=== PATIENT | female | born 1985 | race Caucasian/White ===

== ENCOUNTER 2019-03-05 02:20 | Inpatient (IN) | payer OTHER ==
[2019-03-05] MEDS ORDERED: Ringers Lactate 1,000 ML IV PRN (06:45)
[2019-03-05] MEDS ORDERED: BUTORPHANOL 1 MG/ML INJ IV PRN (06:45)
[2019-03-05] MEDS ORDERED: PROMETHAZINE 25 MG/ML VIAL IV PRN (06:45)
[2019-03-05 06:57] VITALS: BMI 35.2
[2019-03-05] MEDS ORDERED: Ringers Lactate 1,000 ML IV SCH (07:00)
[2019-03-05] MEDS ORDERED: OXYTOCIN/LR 20 UNITS/1,000 ML BAG IV SCH (07:00)
--- NOTE | 2019-03-05 07:09 | P.PN ---
Date of Service: 03/05/19 Cx 2+cm, 60%, vtx 0 station. AROM by placement of FSE. Clear fluid noted.
[2019-03-05 07:10] LABS: RPR Titer ND
[2019-03-05 07:30] LABS: Absolute Monocytes 0.9 K/uL (0.1-1.3); Absolute Neutrophil 5.9 K/uL (1.8-8.0); Basophils % 0.3 % (0-1.3); Hematocrit 38.4 % (36.0-45.0); RBC Red Blood Cell Count 4.14 M/uL (3.86-4.86)
[2019-03-05 07:49] LABS: Urine Appearance CLEAR; Urine Bilirubin NEGATIVE (NEG); Urine Blood NEGATIVE (NEG); Urine Color YELLOW; Urine Glucose NEGATIVE (NEG); Urine Protein NEGATIVE (NEG); Urine Urobilinogen 0.2 mg/dL (0.2-1.0)
[2019-03-05 07:54] LABS: Urine Microscopic Reflex ORDER UMIC
[2019-03-05] MEDS ORDERED: FENTANYL CITR 100 MCG/2 ML IV ONE (07:58)
[2019-03-05 07:59] LABS: Urine Bacteria >50 /HPF (<20); Urine Culture Reflex Order NOT NEEDED; Urine RBC <5 /HPF (NONE SEEN)
[2019-03-05] MEDS ORDERED: ROPIVACAINE HCL 100 ML IV ONE (07:59)
[2019-03-05] MEDS ORDERED: ROPIVACAINE HCL 2 MG/ML 100ML IV ONE (08:00)
[2019-03-05] MEDS ORDERED: ROPIVACAINE HCL 0 ML ONE (08:24)
[2019-03-05] MEDS ORDERED: LIDOCAINE 2% MPF 5 ML VIAL ONE ×2 (09:11→12:51)
[2019-03-05] MEDS ORDERED: CARBOPROST TROME 250 MCG/ML IM ONE (11:52)
[2019-03-05] MEDS ORDERED: METHYLERGONOVINE 0.2MG/ML AMP IM ONE (11:52)
[2019-03-05] MEDS ORDERED: LIDOCAINE 1% MPF 30 ML VIAL ONE (12:07)
[2019-03-05] MEDS ORDERED: PROPOFOL 200 MG/20 ML VIAL IV ONE (12:45)
[2019-03-05] MEDS ORDERED: NA CIT/CITRIC AC 30 ML ORAL UDC ONE (12:52)
[2019-03-05] MEDS ORDERED: METHYLERGONOVINE 0.2 MG TAB PO PRN (13:31)
[2019-03-05] MEDS ORDERED: Oxycodone HCl/Acetaminophen 1 TAB TAB PO PRN (13:31)
[2019-03-05] MEDS ORDERED: CARBOPROST TROME 250 MCG/ML IM PRN (13:31)
[2019-03-05] MEDS ORDERED: METHYLERGONOVINE 0.2MG/ML AMP IM PRN (13:31)
[2019-03-05] MEDS ORDERED: ONDANSETRON 4 MG (ODT) TAB PO PRN (13:31)
[2019-03-05] MEDS ORDERED: OXYTOCIN/LR 20 UNIT/1,000 ML BAG IV SCH (14:00)
[2019-03-05] MEDS: IBUPROFEN 200 MG TAB PO PRN (16:00)
--- NOTE | 2019-03-05 16:14 | PREOPHP ---
Date of Admission: 03/05/2019 History Of Present Illness: Ms. Huff is a 33-year-old female, 1, para 0, n ow at 40 weeks gestation. She is admitted for elective induction of labor secondary to term pregnanc y with favorable cervix. She has been followed by me during this with complications of pat ernal history of family history of Duchenne's muscular dystrophy, prior possible LEEP procedure, and mild depression treated with Celexa. Past Medical History: Please see record. Family History: Please see record. Review of Systems: She reports no recent cough, cold, fever, or chills. No recent nausea, vomiting. She denies any sridevi ast lumps or knots. She denies any bowel or bladder issues other than a tendency towards constipatio n. Physical Examination: General: Reveals female in no apparent distress. Neck: Supple without adenopathy or thyromegaly. Lungs: Clear. Cardiac: Regular rate and rhythm without murmurs. Breasts: Not examined. Abdomen: estimated weight is 7+ pounds Pelvic: Cervix noted to be 2 cm, 70% effaced, vertex at -1 to 0 station, vertex presentation. Extremities: trace lower extremity edema. Impression: Term , favorable cervix. Plan: The patient will be admitted for delivery for induction of labor. Risks are discussed. She h as signed operative permit in my presence. MICHAELLE/DALTON Voice ID: [id number]
[2019-03-05] MEDS ORDERED: Ringers Lactate 2,000 ML IV ONE (17:58)
[2019-03-05 23:40] LABS: RPR (Rapid Plasma Reagin) NON-REACT (NON-REACT)
[2019-03-06] MEDS: IBUPROFEN 200 MG TAB PO PRN ×2 (00:14→15:35)
--- NOTE | 2019-03-06 01:35 | DN ---
Surgeon: Veto Cuevas MD Ms. Huff is a 33-year-old female, 1, para 0, at approximately 40 weeks' ges tation. She is admitted for induction of labor secondary to term with favorable cervix. C ervix was noted to be approximately 2 cm on admission. After rupture of membranes and induction of l abor, she had a first stage of labor of 5 hours and 20 minutes, second stage of labor of 53 minutes. At approximately 9+ cm cervical dilatation, it was determined she was nima breech presentation. Af ter brief discussion, it was elected to proceed with attempted vaginal delivery. She has second stag e of labor of 53 minutes, delivered over right midline episiotomy with the epidural anesthesia. She delivered a 7-pound and 5-ounce male infant in nima breech presentation. The 's cord was clam ped, cut, and the infant was placed in a warmer. Cord blood was obtained. Placenta spontaneously ex pelled very rapidly after delivery of the infant, in fact as the cord was being clamped. Apgars were 5 and 8. Right midline episiotomy was repaired with the assistance of local infiltration of anesthe indra with 1% Xylocaine and it was repaired in usual fashion with 3-0 Vicryl suture. The patient jose antonio ated all procedures well. Dr. Iverson assisted at the time of delivery and Anesthesia was on standby w ith a double set up ready for possible delivery by . MICHAELLE/DALTON Voice ID: [id number] Report ID: [id number]
[2019-03-06 12:47] VITALS: BP 139/73; TEMP 97.8
--- NOTE | 2019-03-07 04:40 | DS ---
Date of Discharge: 03/06/2019 Final Hospital Discharge Diagnoses: 1.40-week gestation. 2.Nima breech presentation. Complications: None. Procedures: Artificial rupture membranes, Pitocin induction of labor, placement of epidural catheter , assisted nima breech delivery, a viable male , right midline episiotomy with repair. Hospital Course: The patient is a 33-year-old female, 1, para 0, at 40 wee ks' gestation, admitted for elective induction of labor. During labor course, which she went relativ sixto rapidly, nmia breech presentation was discovered. After discussion, the decision was to attempt breech delivery. She delivered a 7 pounds 5 ounce male infant, Apgars 5 and 8, right midline episio jarret with epidural anesthesia. Lab work obtained during this hospital stay included an admission hem oglobin and hematocrit of 12.7 and 38.4, dismissal 33.3. She is O-positive blood type. Rubella immu ne. She was dismissed with prescription for Tylenol No.3 #10, to continue taking her iron a nd vitamins, to be seen back in my office in 1 week with usual post vaginal delivery activity restric tions. MICHAELLE/DALTON Voice ID: [id number] Report ID: [id number]
[2019-03-10 02:36] LABS: HBsAG Nonreactive (Nonreactive)
== END 2019-03-06 15:45 | disposition home or self-care (01) | DRG 807 ==
LOC: 2ND-WC 06:00
PROVIDERS: ADMIT Specialist; ATTEND Specialist
PROC: 10E0XZZ Delivery of Products of Conception, External Approach (ICD-10-PCS; principal; 2019-03-05)
PROC: 3E033VJ Introduction of Other Hormone into Peripheral Vein, Percutaneous Approach (ICD-10-PCS; 2019-03-05)
PROC: 10907ZC Drainage of Amniotic Fluid, Therapeutic from Products of Conception, Via Natural or Artificial Opening (ICD-10-PCS; 2019-03-05)
PROC: 0W8NXZZ Division of Female Perineum, External Approach (ICD-10-PCS; 2019-03-05)
PROC: 4A1H74Z Monitoring of Products of Conception, Cardiac Electrical Activity, Via Natural or Artificial Opening (ICD-10-PCS; 2019-03-05)
PROC: 10H073Z Insertion of Monitoring Electrode into Products of Conception, Via Natural or Artificial Opening (ICD-10-PCS; 2019-03-05)
DX: O32.1XX0 Maternal care for breech presentation, not applicable or unspecified (principal); Z37.0 Single live birth; Z3A.40 40 weeks gestation of pregnancy
CPT/HCPCS: 36415; 81003; 81015; 85014; 85025; 86592; 86901; 87340; J2210; J2590; J2704; J2795; J3010

== ENCOUNTER 2024-11-12 06:33 | Emergency (ER) | payer OTHER ==
--- OUTSIDE RECORDS SUMMARY | 2024-11-12 06:39 | XMS REPORT | Continuity of Care Document ---
Author Name Unknown Address [address] [place] [address]. [address] [place] [address] [facility] Address [address] [facility] [address] [place] [address] Care Team Providers Care Worm Sorter Name Role Phone PCP, PATIENT DOES NOT HAVE A Primary Care Physic gunner Unavailable CARSON GRIFFIN Attending Clinician Unavailable CARSON GRIFFIN Attending Clinician Unavailable Carson Griffin MD Attending Clinician [phone], [facility] Attending Clinician Unavailable JOANN BULLOCK Attending Clinician Unavailable Joann Bullock DNP Attending Clinician [phone] Doctor Unassigned, [place] Attending Clinician U DOLORES Dumont Attending Clinician Unavailable DOLORES ASHLEY Attending Clinician Unavailable DOLORES ASHLEY Attending Clinician Unavailable 1, [facility] Us Room Attending Clinician UnavailJaya Jerez MD Attending Clinician + Dolores Ashley MD Attending Clinician [phone] Corina Nath MD Attending Clinician [phone] Lucero Romero RN Attending Clinician UnavailCORINA Dodd Attending Clinician Unavailable 1, [facility] Room Attending Clinician UnavailCorina Gannon MD Attending Clinician [phone], [facility] Attending Clinician Unavailable Doctor Unassigned, [place] Attending Clinician U navailable Lab, Ang - Db Attending Clinician Unavailable Duke Garcia MD Attending Clinician [phone] DUKE GARCIA Attending Clinician Unavailable FERN STREETER Attending Clinician Unavailable RENNY BRYANT Attending Clinician RENNY Tejada Attending Clinician Fern Jenkins PA-C Attending Clinician [phone] TYLER CLIFTON Attending Clinician Unavailable TYLER CLIFTON Attending Clinician Unavailable CARSON GRIFFIN Admitting Clinician Unavailable Carson Griffin MD Admitting Clinician [phone] CARSON GRIFFIN Admitting Clinician Unavailable TYLER CLIFTON Admitting Clinician Unavailable Payers Payer Name Policy Type Policy Number Effective Date Expirati on Date Source [employer] II [id number] 2018 00:00:00 Problems Condition Name Condition Details Condition Category Status Onset Date Resolution Date Last Treatment Date Treating Clinician Comments Source Normal labor Normal labor Disease Active 2023-11 00:00: 00 [facility] 37 weeks gestation of 37 weeks gestation of Disease Active 2023-11 00:00: 00 [facility] Liveborn infant, of macario , born in hospital by delivery Liveborn , of macario , born in hospital by delivery Disease Active 2023-11 00:00: 00 [facility] Pain of round ligament complicati ng , antepartum Pain of round ligament complicati ng , antepartum Disease Active 2023-11 00:00: 00 [facility] Pelvic pain during in third trimester, antepartum Pelvic pain during in third trimester, antepartum Disease Active 2023-11 00:00: 00 [facility] Shortness of breath Shortness of breath Disease Active 06-20 00:00: 00 [facility] Palpitatio ns Palpitatio ns Disease Active 06-20 00:00: 00 [facility] High-risk in third trimester High-risk in third trimester Disease Active 04-03 00:00: 00 [facility] Previous section Previous section Disease Active 04-03 00:00: 00 [facility] Antepartum multigravi da of advanced maternal age Antepartum multigravi da of advanced maternal age Disease Active 04-03 00:00: 00 [facility] Anxiety and depression Anxiety and depression Disease Active 04-03 00:00: 00 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 Hx LEEP (loop electrosur gical excision procedure) , cervix, , third trimester Hx LEEP (loop electrosur gical excision procedure) , cervix, , third trimester Disease Active 02-17 00:00: 00 [facility] History of loop electrical excision procedure (LEEP) History of loop electrical excision procedure (LEEP) Disease Active 02-17 00:00: 00 [facility] Obesity (BMI 30-39.9) Obesity (BMI 30-39.9) Disease Active 02-17 00:00: 00 [facility] PMS (premenstr ual syndrome) PMS (premenstr ual syndrome) Disease Resolve d 9-17 00:00: 00 2024-09-19 00:00:00 2024-09-19 17:12:27 [facility] LGSIL on Pap smear of cervix LGSIL on Pap smear of cervix Disease Resolve d 8-10 00:00: 00 2024-04-03 00:00:00 2024-04-03 12:41:55 [facility] 38 weeks gestation of 38 weeks gestation of Disease Resolve d 02-17 00:00: 00 2021-08-12 00:00:00 2021-08-12 11:52:46 [facility] Breech presentati on Breech presentati on Disease Active 02-17 00:00: 00 2021-08-12 00:00:00 2021-08-12 11:52:48 [facility] Uterine contractio ns during Uterine contractio ns during Disease Resolve d 02-17 00:00: 00 2021-08-12 00:00:00 2021-08-12 11:52:54 [facility] Allergies, Adverse Reactions, Alerts Allergy Name Allergy Type Status Severity Reaction(s) Onset Date Inactive Date Treating Clinician Comments Source NO KNOWN ALLERGIE S Drug Class Active [facility] Social History Social Habit Start Date Stop Date Quantity Comments Source ASSERTION 2024-02-29 00:00:00 [facility] Gender identity [facility] SDOH Alcohol Frequency [facility] History SDOH Alcohol Std Drinks [facility] History SDOH Alcohol Binge [facility] Alcoholic beverage intake 2024-11-11 00:00:00 2024-11-11 00:00:00 Ex-drinker (finding) [facility] Alcohol Comment 2024-04-03 00:00:00 2024-04-03 00:00:00 [facility] Alcohol intake 2024-03-21 00:00:00 2024-03-21 00:00:00 Ex-drinker (finding) [facility] Tobacco use and exposure 2023-06-15 00:00:00 2023-06-15 00:00:00 Smokeless tobacco non-user [facility] Exposure to SARS-CoV-2 (event) 2022-09-30 00:00:00 2022-10-10 13:01:00 Not sure [facility] History of Social function 2021-08-12 00:00:00 2021-08-12 00:00:00 [facility] Sex assigned at 1985 00:00:00 1985 00:00:00 [facility] Smoking Status Start Date Stop Date Source Never smoked tobacco [facility] Medications Ordered Medication Name Filled Medication Name Start Date Stop Date Current Medication? Ordering Clinician Indication Dosage Frequency Signature (SIG) Comments Components Source ibuprofen (IBU) tablet 600 mg 2023-11 18:00: 00 11-02 22:02 :52 No 600mg 600 mg, Oral, Q6H ABX, First dose on 11/02/24 at 1200, Until Discontinu ed, Routine [facility] cetirizine (ZYRTEC) tablet 10 mg 2023-11 21:00: 00 11-02 22:02 :52 No 10mg 10 mg, Oral, DAILY, First dose (after last modificati on) on 11/01/24 at 1500, Until Discontinu ed, Routine [facility] diphenhydrA MINE (BENADRYL) tablet 50 mg 2023-11 18:47: 07 11-02 22:02 :52 No 50mg 50 mg, Oral, Q8HPRN, Starting on 11/01/24 at 1247, Until 11/02/24 at 1602, Routine, Congestion /Allergies [facility] sodium chloride (OCEAN MIST NASAL) 0.65 % nasal spray 1 [place] 2023-11 18:46: 07 11-02 22:02 :52 No 1{spray } 1 [place], Nasal, PRN, Starting on 11/01/24 at 1246, Until 11/02/24 at 1602, Routine, Surgery/Pr ocedure, prn for nasal congestion [facility] ketorolac (TORADOL) injection 30 mg 2023-11 18:00: 00 11-02 11:46 :00 No 30mg 30 mg, Slow IV Push, Q6H ABX, 4 doses, First dose on 11/01/24 at 1200, Last dose on 11/02/24 at 0600, Routine [facility] docusate (COLACE) capsule 200 mg 2023-11 15:00: 00 11-02 22:02 :52 No 200mg 200 mg, Oral, DAILY, First dose on 11/01/24 at 0900, Until Discontinu ed, Routine [facility] gabapentin (NEURONTIN) capsule 300 mg 2023-11 14:00: 00 11-02 22:02 :52 No 300mg 300 mg, Oral, TID, First dose on 11/01/24 at 0800, Until Discontinu ed, Routine [facility] simethicone (GAS RELIEF (SIMETHICON E)) chewable tablet 160 mg 2023-11 14:00: 00 11-02 22:02 :52 No 160mg 160 mg, Oral, TID, First dose on 11/01/24 at 0800, Until Discontinu ed, Routine [facility] acetaminoph en (TYLENOL) tablet 1,000 mg 2023-11 12:00: 00 11-02 22:02 :52 No 1000mg 1,000 mg, Oral, Q8H ABX, First dose on 11/01/24 at 0600, Until Discontinu ed, Routine [facility] HYDROcodone -acetaminop hen (NORCO 5) tablet 1 tablet 2023-11 04:00: 00 11-01 04:30 :00 No 1{tbl} 1 tablet, Oral, ONCE, 1 dose, On Sun10/31/24 at 2200, Routine, PACU [facility] FENTanyl (PF) (SUBLIMAZE) injection 25 mcg 2023-11 03:50: 29 11-02 22:02 :52 No 25ug 25 mcg, Slow IV Push, Q5MIN PRN, 4 doses, Starting on Sun10/31/24 at 2150, Until 11/02/24 at 1602, Routine, Pain Scale 4-6, PACU [facility] ondansetron (ZOFRAN (PF)) injection 4 mg 2023-11 03:50: 29 11-02 22:02 :52 No 4mg 4 mg, Slow IV Push, PRN, 1 dose, Starting on Sun10/31/24 at 2150, Until 11/02/24 at 1602, Administer over 2-5 Minutes, 2 mL, PACU [facility] rho(D) immune globulin (RHOPHYLAC) injection 300 mcg 2023-11 03:34: 05 11-02 22:02 :52 No 300ug [facility] oxyCODONE immediate release tablet 5 mg 2023-11 03:34: 00 11-02 22:02 :52 No 5mg 5 mg, Oral, Q6HPRN, Starting on Sun10/31/24 at 2134, Until 12/8/24 at 1602, Routine, Pain (scale 7-10), 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 Restricted medication : CARSON GRIFFIN [facility] diphenhydrA MINE (BENADRYL) injection 25 mg 2023-11 03:34: 00 11-02 22:02 :52 No 25mg [facility] diphenhydrA MINE (BENADRYL) tablet 25 mg 2023-11 03:34: 00 11-02 22:02 :52 No 25mg 25 mg, Oral, Q6HPRN, Starting on Sun10/31/24 at 2134, Until 11/02/24 at 1602, Routine, Sleep, Itching [facility] ondansetron (ZOFRAN (PF)) injection 4 mg 2023-11 03:34: 00 11-02 22:02 :52 No 4mg [facility] bisacodyL (DULCOLAX) suppository 10 mg 2023-11 03:34: 00 11-02 22:02 :52 No 10mg [facility] magnesium hydroxide (MILK OF MAGNESIA) 400 mg/5 mL suspension 30 mL 2023-11 03:34: 00 11-02 22:02 :52 No 30mL [facility] lactated ringers IV infusion 1,000 mL 2023-11 03:34: 00 11-02 22:02 :52 No 1000mL [facility] mupirocin (BACTROBAN OINT) 2 % oinintment 2023-11 02:30: 00 11-02 22:02 :52 No Intra-op [facility] sodium chloride 0.9 % irrigation solution 2023-11 02:16: 00 11-02 22:02 :52 No PRN, Starting on Sun10/31/24 at 2016, Until 11/02/24 at 1602, Intra-op [facility] lactated ringers IV infusion 1,000 mL 2023-11 01:30: 00 11-01 03:34 :04 No 1000mL at 125 mL/hr, 1,000 mL, IV Infusion, CONTINUOUS , Starting on Sun10/31/24 at 1930, Until Sun10/31/24 at 2134, YELENA [facility] vitamin w/FA tablet 2023-11 00:00: 00 Yes [id number] 1{tbl} Take 1 tablet by mouth in the morning. [facility] docusate 100 mg capsule 2023-11 00:00: 00 Yes [id number] 200mg Take 2 capsules by mouth once daily as needed for Constipati on. [facility] ferrous sulfate 325 mg (65 mg iron) tablet 2023-11 00:00: 00 Yes [id number] 325mg Take 1 tablet by mouth in the morning. [facility] ibuprofen 800 mg tablet 2023-11 00:00: 00 Yes [id number] 800mg Take 1 tablet by mouth every 8 (eight) hours as needed (pain). Take with food or milk. [facility] acetaminoph en 500 mg tablet 2023-11 00:00: 00 Yes [id number] 1000mg Take 2 tablets by mouth every 8 (eight) hours as needed for Pain. [facility] oxyCODONE 5 mg immediate release tablet 2023-11 00:00: 00 11-09 05:59 :00 Yes [id number] 5mg Take 1 tablet by mouth every 6 (six) hours as needed (pain) for up to 7 days. Indication s: acute pain [facility] gabapentin 300 mg capsule 2023-11 00:00: 00 11-07 05:59 :00 Yes [id number] 300mg Take 1 capsule by mouth in the morning and 1 capsule at noon and 1 capsule in the evening. Do all this for [address] [facility] azithromyci n (ZITHROMAX) 500 mg in NaCl 0.9% (NS) 250 mL VIAL-MATE IV piggyback 2023-11 21:27: 28 11-01 03:59 :00 No 500mg 500 mg, IV Piggyback, O.R. 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 sodium citrate-cit dahlia acid (BICITRA) 500-334 mg/5 mL solution 30 mL 2023-11 21:27: 07 11-01 01:13 :00 No 30mL 30 mL, Oral, PRE-PROCED URE ONCE, 1 dose, Starting on Sun10/31/24 at 1527, Until Sun10/31/24 at 1913, Routine, Surgery/Pr ocedure [facility] ceFAZolin (ANCEF) 2,000 mg in NaCl 0.9% (NS) 100 mL MINI-BAG 2023-11 21:27: 11-01 01:24 :00 No 2000mg 2,000 mg, IV Piggyback, O.R. HOLDING ONCE, 1 dose, Starting on Sun10/31/24 at 1527, Until Sun10/31/24 at 1924, Administer over 30 Minutes, 100 mL, Reason for Anti-Infec tive: Surgical Prophylaxi s, Surgical Prophylaxi s: STEM LEAD FORMER, Duration of therapy: within [address] [facility] valACYclovi r (VALTREX) 500 mg tablet 2023-11 00:00: 00 11-01 00:00 :00 No [id number] 500mg Take 1 tablet by mouth in the morning and 1 tablet in the evening. [facility] citalopram 40 mg tablet 2023-11 00:00: 00 11-01 00:00 :00 No [id number] 40mg Take 1 tablet by mouth in the morning. [facility] hydrocortis one 25 mg suppository 2023-11 00:00: 00 11-01 00:00 :00 No [id number] 25mg Insert 1 Suppositor y into rectum in the morning and 1 Suppositor y in the evening. [facility] aspirin 81 mg EC tablet 14 00:00: 00 11-01 00:00 :00 No [id number] 81mg Take 1 tablet by mouth in the morning. [facility] cetirizine HCl (ZYRTEC ORAL) 05-02 11:08: 47 11-01 00:00 :00 No 1{tbl} Take [address] [facility] MULTIVITAMI N ORAL 06-25 14:33: 16 Yes Take by mouth. [facility] MULTIVITAMI N ORAL 06-15 09:07: 05 Yes Take by mouth. [facility] miSOPROStoL 200 mcg tablet 06-15 00:00: 00 06-25 00:00 :00 No [id number] 100 200ug Take 1 tablet by mouth SEE-INSTRU CTIONS. Take one tab the night before and one tab the morning of procedure [facility] medroxyPROG ESTERone (PROVERA) 10 mg tablet 06-15 00:00: 00 06-23 04:59 :00 No [id number] 100 20mg Take 2 tablets by mouth in the morning and 2 tablets at noon and 2 tablets in the evening. Do all this for [address] [facility] norgestimat e-ethinyl estradioL 0.25-35 mg-mcg per tablet 2021-11 00:00: 00 06-15 00:00 :00 No [id number] 1{tbl} Take 1 tablet by mouth in the morning. [facility] norgestimat e-ethinyl estradioL 0.25-35 mg-mcg per tablet 2021-11 0- 00:00: 00 10-10 00:00 :00 No [id number] 1{tbl} Take 1 tablet by mouth in the morning. [facility] norgestimat e-ethinyl estradioL 0.25-35 mg-mcg per tablet 2020-11 2-18 00:00: 09-06 00:00 :00 No [id number] 1{tbl} Take 1 tablet by mouth daily. [facility] vit no.124/iron /folic ( VITAMIN ORAL) 08-12 11:21: 46 03-21 00:00 :00 No Take by mouth. [facility] norgestimat e-ethinyl estradioL 0.25-35 mg-mcg per tablet 08-12 00:00: 00 11-12 00:00 :00 No [id number] 1{tbl} Take 1 tablet by mouth daily. [facility] citalopram 40 mg tablet 08-04 00:00: 00 10-02 00:00 :00 No 40mg Take 1 tablet by mouth every morning. [facility] Immunizations Ordered Immunization Name Filled Immunization Name Date Status Comments Source RSV, Bivalent Protein Subunit RSVprdF 2024-10-17 00:00:00 Completed [facility] TDAP 2024-09-19 00:00:00 Completed [facility] Influenza Virus Vaccine Quad IM, Preserv and ABX Free 6 MO-64 YRS (FLUCELVAX) 2024-04-03 00:00:00 Completed [facility] Influenza Virus Vaccine Quad IM, Preserv and ABX Free 6 MO-64 YRS (FLUCELVAX) 2024-04-03 00:00:00 Completed [facility] Influenza Virus Vaccine Quad IM, Preserv and ABX Free 6 MO-64 YRS (FLUCELVAX) 2024-04-03 00:00:00 Completed [facility] Influenza Virus Vaccine Quad IM, Preserv and ABX Free 6 MO-64 YRS (FLUCELVAX) 2024-04-03 00:00:00 Completed [facility] Influenza Virus Vaccine Quad IM, Preserv and ABX Free 6 MO-64 YRS (FLUCELVAX) 2024-04-03 00:00:00 Completed [facility] Influenza Virus Vaccine Quad IM, Preserv and ABX Free 6 MO-64 YRS (FLUCELVAX) 2024-04-03 00:00:00 Completed [facility] SARS-COV-2 COVID-19 PFIZER VACCINE 2021-07-22 00:00:00 Completed [facility] SARS-COV-2 COVID-19 PFIZER VACCINE 2021-07-22 00:00:00 Completed [facility] SARS-COV-2 COVID-19 PFIZER VACCINE 2021-07-22 00:00:00 Completed [facility] SARS-COV-2 COVID-19 PFIZER VACCINE 2021-07-22 00:00:00 Completed [facility] SARS-COV-2 COVID-19 PFIZER VACCINE 2021-07-22 00:00:00 Completed [facility] SARS-COV-2 COVID-19 PFIZER VACCINE 2021-07-22 00:00:00 Completed [facility] SARS-COV-2 COVID-19 PFIZER VACCINE 2021-07-22 00:00:00 Completed [facility] SARS-COV-2 COVID-19 PFIZER VACCINE 2021-07-22 00:00:00 Completed [facility] SARS-COV-2 COVID-19 PFIZER VACCINE 2021-07-22 00:00:00 Completed [facility] SARS-COV-2 COVID-19 PFIZER VACCINE 2021-07-22 00:00:00 Completed [facility] SARS-COV-2 COVID-19 PFIZER VACCINE 2021-07-22 00:00:00 Completed [facility] SARS-COV-2 COVID-19 PFIZER VACCINE 2021-07-22 00:00:00 Completed [facility] SARS-COV-2 COVID-19 PFIZER VACCINE 2021-07-22 00:00:00 Completed [facility] SARS-COV-2 COVID-19 PFIZER VACCINE 2021-07-22 00:00:00 Completed SARS-COV-2 COVID-19 PFIZER VACCINE 2021-07-22 00:00:00 Completed SARS-COV-2 COVID-19 PFIZER VACCINE 2021-07-22 00:00:00 Completed SARS-COV-2 COVID-19 PFIZER VACCINE 2021-07-22 00:00:00 Completed SARS-COV-2 COVID-19 PFIZER VACCINE 2021-07-22 00:00:00 Completed SARS-COV-2 COVID-19 PFIZER VACCINE 2021-07-22 00:00:00 Completed SARS-COV-2 COVID-19 PFIZER VACCINE 2021-07-01 00:00:00 Completed [facility] SARS-COV-2 COVID-19 PFIZER VACCINE 2021-07-01 00:00:00 Completed [facility] SARS-COV-2 COVID-19 PFIZER VACCINE 2021-07-01 00:00:00 Completed [facility] SARS-COV-2 COVID-19 PFIZER VACCINE 2021-07-01 00:00:00 Completed [facility] SARS-COV-2 COVID-19 PFIZER VACCINE 2021-07-01 00:00:00 Completed [facility] SARS-COV-2 COVID-19 PFIZER VACCINE 2021-07-01 00:00:00 Completed [facility] SARS-COV-2 COVID-19 PFIZER VACCINE 2021-07-01 00:00:00 Completed [facility] SARS-COV-2 COVID-19 PFIZER VACCINE 2021-07-01 00:00:00 Completed [facility] SARS-COV-2 COVID-19 PFIZER VACCINE 2021-07-01 00:00:00 Completed [facility] SARS-COV-2 COVID-19 PFIZER VACCINE 2021-07-01 00:00:00 Completed [facility] SARS-COV-2 COVID-19 PFIZER VACCINE 2021-07-01 00:00:00 Completed [facility] SARS-COV-2 COVID-19 PFIZER VACCINE 2021-07-01 00:00:00 Completed [facility] SARS-COV-2 COVID-19 PFIZER VACCINE 2021-07-01 00:00:00 Completed [facility] SARS-COV-2 COVID-19 PFIZER VACCINE 2021-07-01 00:00:00 Completed SARS-COV-2 COVID-19 PFIZER VACCINE 2021-07-01 00:00:00 Completed SARS-COV-2 COVID-19 PFIZER VACCINE 2021-07-01 00:00:00 Completed SARS-COV-2 COVID-19 PFIZER VACCINE 2021-07-01 00:00:00 Completed SARS-COV-2 COVID-19 PFIZER VACCINE 2021-07-01 00:00:00 Completed SARS-COV-2 COVID-19 PFIZER VACCINE 2021-07-01 00:00:00 Completed TDAP (ADACEL) VACCINE 2019-12-21 00:00:00 Completed [facility] TDAP (ADACEL) VACCINE 2019-12-21 00:00:00 Completed [facility] TDAP (ADACEL) VACCINE 2019-12-21 00:00:00 Completed [facility] TDAP (ADACEL) VACCINE 2019-12-21 00:00:00 Completed [facility] TDAP (ADACEL) VACCINE 2019-12-21 00:00:00 Completed [facility] TDAP (ADACEL) VACCINE 2019-12-21 00:00:00 Completed [facility] TDAP (ADACEL) VACCINE 2019-12-21 00:00:00 Completed [facility] TDAP (ADACEL) VACCINE 2019-12-21 00:00:00 Completed [facility] TDAP (ADACEL) VACCINE 2019-12-21 00:00:00 Completed [facility] TDAP (ADACEL) VACCINE 2019-12-21 00:00:00 Completed [facility] TDAP (ADACEL) VACCINE 2019-12-21 00:00:00 Completed [facility] TDAP (ADACEL) VACCINE 2019-12-21 00:00:00 Completed [facility] TDAP (ADACEL) VACCINE 2019-12-21 00:00:00 Completed [facility] TDAP (ADACEL) VACCINE 2019-12-21 00:00:00 Completed [facility] TDAP (ADACEL) VACCINE 2019-12-21 00:00:00 Completed [facility] TDAP (ADACEL) VACCINE 2019-12-21 00:00:00 Completed [facility] TDAP (ADACEL) VACCINE 2019-12-21 00:00:00 Completed [facility] TDAP (ADACEL) VACCINE 2019-12-21 00:00:00 Completed [facility] TDAP (ADACEL) VACCINE 2019-12-21 00:00:00 Completed [facility] TDAP (ADACEL) VACCINE Unknown Completed [facility] SARS-COV-2 COVID-19 PFIZER VACCINE Unknown Completed [facility] TDAP (ADACEL) VACCINE Unknown Completed [facility] SARS-COV-2 COVID-19 PFIZER VACCINE Unknown Completed [facility] TDAP (ADACEL) VACCINE Unknown Completed [facility] SARS-COV-2 COVID-19 PFIZER VACCINE Unknown Completed [facility] TDAP (ADACEL) VACCINE Unknown Completed [facility] SARS-COV-2 COVID-19 PFIZER VACCINE Unknown Completed [facility] TDAP (ADACEL) VACCINE Unknown Completed [facility] SARS-COV-2 COVID-19 PFIZER VACCINE Unknown Completed [facility] TDAP (ADACEL) VACCINE Unknown Completed [facility] SARS-COV-2 COVID-19 PFIZER VACCINE Unknown Completed [facility] TDAP (ADACEL) VACCINE Unknown Completed [facility] SARS-COV-2 COVID-19 PFIZER VACCINE Unknown Completed [facility] TDAP (ADACEL) VACCINE Unknown Completed [facility] SARS-COV-2 COVID-19 PFIZER VACCINE Unknown Completed [facility] TDAP (ADACEL) VACCINE Unknown Completed [facility] SARS-COV-2 COVID-19 PFIZER VACCINE Unknown Completed [facility] TDAP (ADACEL) VACCINE Unknown Completed [facility] SARS-COV-2 COVID-19 PFIZER VACCINE Unknown Completed [facility] Influenza Virus Vaccine Quad IM, Preserv and ABX Free 6 MO-64 YRS (FLUCELVAX) Unknown Completed [facility] [facility] (ADACEL) VACCINE Unknown Completed [facility] SARS-COV-2 COVID-19 PFIZER VACCINE Unknown Completed [facility] Influenza Virus Vaccine Quad IM, Preserv and ABX Free 6 MO-64 YRS (FLUCELVAX) Unknown Completed [facility] TDAP (ADACEL) VACCINE Unknown Completed [facility] SARS-COV-2 COVID-19 PFIZER VACCINE Unknown Completed [facility] Influenza Virus Vaccine Quad IM, Preserv and ABX Free 6 MO-64 YRS (FLUCELVAX) Unknown Completed [facility] TDAP (ADACEL) VACCINE Unknown Completed [facility] SARS-COV-2 COVID-19 PFIZER VACCINE Unknown Completed [facility] Influenza Virus Vaccine Quad IM, Preserv and ABX Free 6 MO-64 YRS (FLUCELVAX) Unknown Completed [facility] TDAP (ADACEL) VACCINE Unknown Completed [facility] SARS-COV-2 COVID-19 PFIZER VACCINE Unknown Completed [facility] Influenza Virus Vaccine Quad IM, Preserv and ABX Free 6 MO-64 YRS (FLUCELVAX) Unknown Completed [facility] TDAP (ADACEL) VACCINE Unknown Completed [facility] SARS-COV-2 COVID-19 PFIZER VACCINE Unknown Completed [facility] Influenza Virus Vaccine Quad IM, Preserv and ABX Free 6 MO-64 YRS (FLUCELVAX) Unknown Completed [facility] TDAP (ADACEL) VACCINE Unknown Completed [facility] SARS-COV-2 COVID-19 PFIZER VACCINE Unknown Completed [facility] Influenza Virus Vaccine Quad IM, Preserv and ABX Free 6 MO-64 YRS (FLUCELVAX) Unknown Completed [facility] TDAP (ADACEL) VACCINE Unknown Completed [facility] SARS-COV-2 COVID-19 PFIZER VACCINE Unknown Completed [facility] Influenza Virus Vaccine Quad IM, Preserv and ABX Free 6 MO-64 YRS (FLUCELVAX) Unknown Completed [facility] TDAP (ADACEL) VACCINE Unknown Completed [facility] SARS-COV-2 COVID-19 PFIZER VACCINE Unknown Completed [facility] Influenza Virus Vaccine Quad IM, Preserv and ABX Free 6 MO-64 YRS (FLUCELVAX) Unknown Completed [facility] TDAP (ADACEL) VACCINE Unknown Completed [facility] SARS-COV-2 COVID-19 PFIZER VACCINE Unknown Completed [facility] Influenza Virus Vaccine Quad IM, Preserv and ABX Free 6 MO-64 YRS (FLUCELVAX) Unknown Completed [facility] TDAP (ADACEL) VACCINE Unknown Completed [facility] SARS-COV-2 COVID-19 PFIZER VACCINE Unknown Completed [facility] Influenza Virus Vaccine Quad IM, Preserv and ABX Free 6 MO-64 YRS (FLUCELVAX) Unknown Completed [facility] TDAP (ADACEL) VACCINE Unknown Completed [facility] SARS-COV-2 COVID-19 PFIZER VACCINE Unknown Completed [facility] Influenza Virus Vaccine Quad IM, Preserv and ABX Free 6 MO-64 YRS (FLUCELVAX) Unknown Completed [facility] TDAP (ADACEL) VACCINE Unknown Completed [facility] SARS-COV-2 COVID-19 PFIZER VACCINE Unknown Completed [facility] Influenza Virus Vaccine Quad IM, Preserv and ABX Free 6 MO-64 YRS (FLUCELVAX) Unknown Completed [facility] TDAP (ADACEL) VACCINE Unknown Completed [facility] SARS-COV-2 COVID-19 PFIZER VACCINE Unknown Completed [facility] Influenza Virus Vaccine Quad IM, Preserv and ABX Free 6 MO-64 YRS (FLUCELVAX) Unknown Completed [facility] TDAP (ADACEL) VACCINE Unknown Completed [facility] SARS-COV-2 COVID-19 PFIZER VACCINE Unknown Completed [facility] Influenza Virus Vaccine Quad IM, Preserv and ABX Free 6 MO-64 YRS (FLUCELVAX) Unknown Completed [facility] TDAP (ADACEL) VACCINE Unknown Completed [facility] SARS-COV-2 COVID-19 PFIZER VACCINE Unknown Completed [facility] Influenza Virus Vaccine Quad IM, Preserv and ABX Free 6 MO-64 YRS (FLUCELVAX) Unknown Completed [facility] TDAP (ADACEL) VACCINE Unknown Completed [facility] SARS-COV-2 COVID-19 PFIZER VACCINE Unknown Completed [facility] Influenza Virus Vaccine Quad IM, Preserv and ABX Free 6 MO-64 YRS (FLUCELVAX) Unknown Completed [facility] TDAP (ADACEL) VACCINE Unknown Completed [facility] SARS-COV-2 COVID-19 PFIZER VACCINE Unknown Completed [facility] Influenza Virus Vaccine Quad IM, Preserv and ABX Free 6 MO-64 YRS (FLUCELVAX) Unknown Completed [facility] TDAP (ADACEL) VACCINE Unknown Completed [facility] SARS-COV-2 COVID-19 PFIZER VACCINE Unknown Completed [facility] Influenza Virus Vaccine Quad IM, Preserv and ABX Free 6 MO-64 YRS (FLUCELVAX) Unknown Completed [facility] TDAP (ADACEL) VACCINE Unknown Completed [facility] SARS-COV-2 COVID-19 PFIZER VACCINE Unknown Completed [facility] Influenza Virus Vaccine Quad IM, Preserv and ABX Free 6 MO-64 YRS (FLUCELVAX) Unknown Completed [facility] TDAP (ADACEL) VACCINE Unknown Completed [facility] SARS-COV-2 COVID-19 PFIZER VACCINE Unknown Completed [facility] Influenza Virus Vaccine Quad IM, Preserv and ABX Free 6 MO-64 YRS (FLUCELVAX) Unknown Completed [facility] TDAP (ADACEL) VACCINE Unknown Completed [facility] SARS-COV-2 COVID-19 PFIZER VACCINE Unknown Completed [facility] Influenza Virus Vaccine Quad IM, Preserv and ABX Free 6 MO-64 YRS (FLUCELVAX) Unknown Completed [facility] TDAP (ADACEL) VACCINE Unknown Completed [facility] SARS-COV-2 COVID-19 PFIZER VACCINE Unknown Completed [facility] Influenza Virus Vaccine Quad IM, Preserv and ABX Free 6 MO-64 YRS (FLUCELVAX) Unknown Completed [facility] Vital Signs Vital Name Observation Time Observation Value Comments S ource Systolic blood pressure 2024-11-11 16:36:00 128 mm[Hg] [facility] Diastolic blood pressure 2024-11-11 16:36:00 78 mm[Hg] [facility] Heart rate 2024-11-11 16:36:00 77 /min [facility] Body temperature 2024-11-11 16:36:00 37.06 Anna [facility] Body height 2024-11-11 16:36:00 172.7 cm [facility] Body weight 2024-11-11 16:36:00 97.433 kg [facility] BMI 2024-11-11 16:36:00 32.66 kg/m2 [facility] Systolic blood pressure 2024-11-02 14:21:00 136 mm[Hg] [facility] Diastolic blood pressure 2024-11-02 14:21:00 81 mm[Hg] [facility] Heart rate 2024-11-02 14:21:00 74 /min [facility] Body temperature 2024-11-02 14:21:00 37.11 Anna [facility] Respiratory rate 2024-11-02 14:21:00 18 /min [facility] Oxygen saturation in Arterial blood by Pulse oximetry 2024-11-02 14:21:00 100 /min [facility] Body height 2024-10-31 23:00:00 172.7 cm [facility] Body weight 2024-10-31 23:00:00 103.42 kg [facility] BMI 2024-10-31 23:00:00 34.67 kg/m2 [facility] Systolic blood pressure 2024-10-17 17:20:00 125 mm[Hg] [facility] Diastolic blood pressure 2024-10-17 17:20:00 80 mm[Hg] [place] [facility] Heart rate 2024-10-17 17:20:00 87 /min [facility] Body temperature 2024-10-17 17:20:00 36.39 Anna [facility] Respiratory rate 2024-10-17 17:20:00 18 /min [facility] Body height 2024-10-17 17:20:00 172.7 cm [facility] Body weight 2024-10-17 17:20:00 102.422 kg [facility] BMI 2024-10-17 17:20:00 34.33 kg/m2 Univ [facility] Systolic blood pressure 2024-10-02 22:25:00 127 mm[Hg] [facility] Diastolic blood pressure 2024-10-02 22:25:00 77 mm[Hg] [facility] Heart rate 2024-10-02 22:25:00 91 /min [facility] Body temperature 2024-10-02 22:25:00 36.39 Anna [facility] Body height 2024-10-02 22:25:[address] [facility] Body weight 2024-10-02 22:25:00 103.057 kg [facility] BMI 2024-10-02 22:25:00 34.55 kg/m2 [facility] Systolic blood pressure 2024-09-19 21:03:00 115 mm[Hg] [facility] Diastolic blood pressure 2024-09-19 21:03:00 73 mm[Hg] [facility] Heart rate 2024-09-19 21:03:00 91 /min [facility] Body temperature 2024-09-19 21:03:00 36.61 Anna [facility] Respiratory rate 2024-09-19 21:03:00 18 /min [facility] Body height 2024-09-19 21:03:[address] [facility] Body weight 2024-09-19 21:03:00 102.422 kg [facility] BMI 2024-09-19 21:03:00 34.33 kg/m2 [facility] Systolic blood pressure 2024-08-21 21:19:00 114 mm[Hg] [facility] Diastolic blood pressure 2024-08-21 21:19:00 66 mm[Hg] [facility] Heart rate 2024-08-21 21:19:00 82 /min [facility] Body temperature 2024-08-21 21:19:00 36.39 Anna [facility] Body weight 2024-08-21 21:19:00 100.517 kg [facility] BMI 2024-08-21 21:19:00 33.69 kg/m2 [facility] Systolic blood pressure 2024-07-23 21:39:00 117 mm[Hg] [facility] Diastolic blood pressure 2024-07-23 21:39:00 72 mm[Hg] [facility] Heart rate 2024-07-23 21:39:00 78 /min [facility] Body weight 2024-07-23 21:39:00 97.433 kg [facility] BMI 2024-07-23 21:39:00 32.66 kg/m2 Univ [facility] Systolic blood pressure 2024-06-27 17:20:00 118 mm[Hg] [facility] Diastolic blood pressure 2024-06-27 17:20:00 66 mm[Hg] [facility] Heart rate 2024-06-27 17:20:00 79 /min [facility] Body temperature 2024-06-27 17:20:00 36.39 Anna [facility] Body height 2024-06-27 17:20:[address] [facility] Body weight 2024-06-27 17:20:[address] [facility] BMI 2024-06-27 17:20:00 31.81 kg/m2 [facility] Systolic blood pressure 2024-06-20 14:44:00 118 mm[Hg] [facility] Diastolic blood pressure 2024-06-20 14:44:00 77 mm[Hg] [facility] Heart rate 2024-06-20 14:44:00 97 /min [facility] 2024-06-20 14:44:00 16 /min [facility] Body height 2024-06-20 14:44:00 172.7 cm [facility] weight 2024-06-20 14:44:00 93.759 kg [facility] BMI 2024-06-20 14:44:00 31.43 kg/m2 [facility] Oxygen saturation in Arterial blood by Pulse oximetry 2024-06-20 14:44:00 98 /min [facility] Systolic blood pressure 2024-06-09 18:17:00 105 mm[Hg] [facility] Diastolic blood pressure 2024-06-09 18:17:00 69 mm[Hg] [facility] Heart rate 2024-06-09 18:17:00 86 /min [facility] Body height 2024-06-09 18:17:[address] [facility] Body weight 2024-06-09 18:17:00 93.622 kg [facility] BMI 2024-06-09 18:17:00 31.38 kg/m2 Univ [facility] Systolic blood pressure 2024-05-02 16:08:00 106 mm[Hg] [facility] Diastolic blood pressure 2024-05-02 16:08:00 69 mm[Hg] [facility] Heart rate 2024-05-02 16:08:00 93 /min [facility] Respiratory rate 2024-05-02 16:08:00 18 /min [facility] Body height 2024-05-02 16:08:00 172.7 cm [facility] Body weight 2024-05-02 16:08:00 90.266 kg [facility] BMI 2024-05-02 16:08:00 30.26 kg/m2 [facility] Systolic blood pressure 2024-04-03 15:25:00 108 mm[Hg] [facility] Diastolic blood pressure 2024-04-03 15:25:00 71 mm[Hg] [facility] Heart rate 2024-04-03 15:25:00 73 /min [facility] Body temperature 2024-04-03 15:25:00 36.61 Anna [facility] Body height 2024-04-03 15:25:[address] [facility] Body weight 2024-04-03 15:25:00 90.084 kg [facility] BMI 2024-04-03 15:25:00 30.20 kg/m2 [facility] Systolic blood pressure 2024-03-21 13:28:00 111 mm[Hg] [facility] Diastolic blood pressure 2024-03-21 13:28:00 73 mm[Hg] [facility] Heart rate 2024-03-21 13:28:00 73 /min [facility] Respiratory rate 2024-03-21 13:28:00 18 /min [facility] Body height 2024-03-21 13:28:00 172.7 cm [facility] Body weight 2024-03-21 13:28:[address] [facility] BMI 2024-03-21 13:28:00 30.56 kg/m2 [facility] Systolic blood pressure 2023-07-25 15:36:00 124 mm[Hg] [facility] Diastolic blood pressure 2023-07-25 15:36:00 78 mm[Hg] [facility] Heart rate 2023-07-25 15:36:00 70 /min [facility] Body temperature 2023-07-25 15:36:00 36.72 Anna [facility] Respiratory rate 2023-07-25 15:36:00 18 /min [facility] Body height 2023-07-25 15:36:00 172.7 cm [facility] Body weight 2023-07-25 15:36:00 88.905 kg [facility] BMI 2023-07-25 15:36:00 29.80 kg/m2 [facility] Systolic blood pressure 2023-07-05 14:13:00 127 mm[Hg] [facility] Diastolic blood pressure 2023-07-05 14:13:00 85 mm[Hg] [facility] Heart rate 2023-07-05 14:13:00 74 /min [facility] Body temperature 2023-07-05 14:13:00 36.72 Anna [facility] Body height 2023-07-05 14:13:00 172.7 cm [facility] Body weight 2023-07-05 14:13:[address] [facility] BMI 2023-07-05 14:13:00 29.80 kg/m2 [facility] Systolic blood pressure 2023-06-25 19:33:00 113 mm[Hg] [facility] Diastolic blood pressure 2023-06-25 19:33:00 68 mm[Hg] [facility] Heart rate 2023-06-25 19:32:00 72 /min Un[facility] Body temperature 2023-06-25 19:32:00 36.67 Anna [facility] Body height 2023-06-25 19:32:00 172.7 cm [facility] Body weight 2023-06-25 19:32:00 87.998 kg [facility] BMI 2023-06-25 19:32:00 29.50 kg/m2 [facility] Systolic blood pressure 2023-06-15 14:10:00 135 mm[Hg] [facility] Diastolic blood pressure 2023-06-15 14:10:00 87 mm[Hg] [facility] Heart rate 2023-06-15 14:10:00 71 /min [facility] Body temperature 2023-06-15 14:10:00 36.39 Anna [facility] Body height 2023-06-15 14:10:[address] [facility] Body weight 2023-06-15 14:10:[address] [facility] BMI 2023-06-15 14:10:00 30.00 kg/m2 [facility] Systolic blood pressure 2022-10-10 19:30:00 135 mm[Hg] [facility] Diastolic blood pressure 2022-10-10 19:30:00 85 mm[Hg] [facility] Heart rate 2022-10-10 19:30:00 72 /min [facility] Body temperature 2022-10-10 19:30:00 36.83 Anna [facility] Respiratory rate 2022-10-10 19:30:00 18 /min [facility] Body height 2022-10-10 19:30:[address] [facility] Body weight 2022-10-10 19:30:00 88.905 kg [facility] BMI 2022-10-10 19:30:00 29.80 kg/m2 [facility] Systolic blood pressure 2021-11-11 17:01:00 126 mm[Hg] [facility] Diastolic blood pressure 2021-11-11 17:01:00 85 mm[Hg] [facility] Heart rate 2021-11-11 17:01:00 80 /min [facility] Body temperature 2021-11-11 17:01:00 36.94 Anna [facility] Respiratory rate 2021-11-11 17:01:00 20 /min [facility] Body height 2021-11-11 17:01:00 172.7 cm [facility] Body weight 2021-11-11 17:01:00 93.611 kg [facility] BMI 2021-11-11 17:01:00 31.38 kg/m2 [facility] Procedures Procedure Date / Time Performed Performing Clinician Source CBC WITH DIFF 2024-11-01 10:12:00 Griffin, Carson [facility] CBC WITH DIFF 2024-11-01 10:12:00 Elias [facility] [id number] - [place] DELIVERY ONLY 2024-11-01 01:05:00 Elias [facility] CBC WITH DIFF 2024-10-31 22:08:00 Elias [facility] HEPATITIS B SURFACE ANTIGEN 2024-10-31 22:08:00 Elias [facility] HB ABO GROUPING 2024-10-31 22:08:00 Elias [facility] RHO (D) IMMUNE GLOBULIN 2024-10-31 22:08:00 Elias [facility] ADC OR MP ONLY - RPR 2024-10-31 22:08:00 Elias [facility] HIV 1/2 AG-AB WITH REFLEX 2024-10-31 22:08:00 Elias [facility] CBC WITH DIFF 2024-10-31 22:08:00 Elias [facility] HEPATITIS B SURFACE ANTIGEN 2024-10-31 22:08:00 Elias [facility] HB ABO GROUPING 2024-10-31 22:08:00 Elias [facility] RHO (D) IMMUNE GLOBULIN 2024-10-31 22:08:00 Elias [facility] ADC OR MP ONLY - RPR 2024-10-31 22:08:00 Elias [facility] HIV 1/2 AG-AB WITH REFLEX 2024-10-31 22:08:00 Elias [facility] POCT URINALYSIS W/O SPECIFIC GRAVITY 2024-10-17 17:23:00 Joann Bullock [facility] POCT URINALYSIS W/O SPECIFIC GRAVITY 2024-10-02 00:00:00 Elias [facility] TDAP VACCINE, >11 YRS, IM 2024-09-19 21:14:31 Joann Bullock [facility] POCT URINALYSIS W/O SPECIFIC GRAVITY 2024-09-19 00:00:00 Joann Bullock [facility] SECOND AND THIRD TRIMESTER ULTRASOUND 2024-08-23 21:12:00 Carson Griffin [facility] POCT URINALYSIS W/O SPECIFIC GRAVITY 2024-08-21 00:00:00 Carson Griffin [facility] POCT URINALYSIS W/O SPECIFIC GRAVITY 2024-07-23 00:00:00 Joann Bullock [facility] TRANSTHORACIC ECHO (TTE) COMPLETE 2024-07-08 20:25:12 Corina Nath [facility] SECOND AND THIRD TRIMESTER ULTRASOUND 2024-07-07 19:26:00 Carson rGiffin [facility] SECOND AND THIRD TRIMESTER ULTRASOUND 2024-07-07 19:15:00 Carson Griffin [facility] POCT URINALYSIS W/O SPECIFIC GRAVITY 2024-06-27 00:00:00 Carson Griffin [facility] POCT URINALYSIS W/O SPECIFIC GRAVITY 2024-06-09 00:00:00 Joann Bullock [facility] POCT URINALYSIS W/O SPECIFIC GRAVITY 2024-05-02 00:00:00 Carson Griffin [facility] US OB TRANSVAGINAL 2024-04-03 17:43:33 [facility] (), 6 MO-64 YRS, .5ML, IM, QUAD (FLUCELVAX) 2024-04-03 16:12:02 Carson Griffin [facility] POCT URINALYSIS W/O SPECIFIC GRAVITY 2024-04-03 00:00:00 Carson Griffin [facility] POCT TEST 2024-03-21 00:00:00 Carson Griffin [facility] DISCLOSURE AND CONSENT MEDICAL & SURGICAL PROCEDURES - FEMALM 2023-07-25 05:01:00 Doctor Unassigned, [employer] [facility] POCT TEST 2023-07-25 00:00:00 Carson Griffin [facility] POCT TEST 2023-06-25 00:00:00 Carson Griffin [facility] US PELVIS COMPLETE WITH TRANSVAGINAL 2023-06-21 18:58:40 Carson Griffin [facility] POCT TEST 2023-06-15 00:00:00 Carson Griffin [facility] CONSENT FOR CONTRACEPTION 2022-10-10 06:01:00 Doctor Unassigned, [employer] [facility] EXTERNAL PROVIDER RECORDS 2021-12-14 06:01:00 Doctor Unassigned, [employer] [facility] Encounters Start Date/Time End Date/Time Encounter Type Admission Type Attending Clinicians Care Facility Care Department Encounter ID Source 2024-11-11 10:15:00 2024-11-11 10:57:06 Outpatient R CARSON GRIFFIN VIEN [facility] [id number] [facility] 2024-11-11 10:15:00 2024-11-11 10:57:06 Routine Visit Carson Griffin [facility] 1..840.114 [id number] [facility] 2024-10-31 15:02:00 2024-11-02 13:45:00 Inpatient P ELIAS CARSON PEREZ KSCECILIO ISIAH [id number] [facility] 2024-10-31 15:02:00 2024-11-02 13:45:00 Hospital Encounter Carson Griffin [facility] 1..840.114 [id number] [id number] [facility] 2024-10-31 12:15:00 2024-10-31 13:51:56 Outpatient R CARSON GRIFFIN VIEN [facility] [id number] [facility] 2024-10-31 08:00:00 2024-10-31 09:41:00 Surgery Carson Griffin [facility] 1..840.114 350.1.13.10 [id number] [facility] 2024-10-27 11:30:00 2024-10-27 11:36:28 Legislative Director Visit 2, [facility] Carson Griffin 2, [facility] [id number] [facility] 2024-10-27 11:30:00 2024-10-27 11:36:28 Outpatient R CARSON GRIFFIN VIEN [facility] [id number] [facility] 2024-10-17 11:00:00 2024-10-17 11:52:33 Outpatient R JOANN BULLOCK [facility] [id number] [facility] 2024-10-17 11:00:00 2024-10-17 11:52:33 [facility] [id number] [id number] [id number] [facility] 2024-10-02 16:15:00 2024-10-02 16:50:20 Outpatient R CARSON GRIFFIN VIEN [facility] [id number] [facility] 2024-10-02 16:15:00 2024-10-02 16:50:20 [facility]ine [facility] 1.2.840.114 350.1.13.10 4.2.7.2.[id number] [facility] 2024-09-19 15:45:00 2024-09-19 16:32:44 Outpatient R JOANN BULLOCK [facility] [id number] [facility] 2024-09-19 15:45:00 2024-09-19 16:32:44 Routine [facility] 1.2840.114 350.1.13.10 4.2.7.2.[id number] [facility] 2024-07-19 00:00:00 2024-08-23 18:25:33 Patient Secure Msg Carson Griffin [facility] BUILDING 1.2840.114 350.1.13.10 4.2.7.2.[id number] [facility] 2024-07-19 00:00:00 2024-08-23 18:25:22 Patient Secure Msg Doctor Unassigned, [place] Doctor Unassigned, [place] [facility] (MIAH) 1.0.114 350.1.13.10 4.2.7.2.[id number] [facility] 2024-08-23 14:45:00 2024-08-23 16:16:11 Outpatient DOLORES MARTINEZ, SHIRIN JAMILEETA [facility] [id number] [facility] 2024-08-23 14:45:00 2024-08-23 16:16:11 Legislative Director Visit 1, [facility] Viera Dolores Ramesh [facility] STEM LEAD [facility] 1..114 350.1.13.10 4.2.7.2.[id number] [facility] 2024-08-22 14:00:00 2024-08-22 14:15:00 Legislative Director Visit 2, Adc Lab Carson Griffin 2, Adc Lab [facility] BUILDING 1.2.114 350.1.13.10 4.2.7.2.[id number] [facility] 2024-08-22 14:00:00 2024-08-22 14:00:00 Outpatient R CARSON GRIFFIN VIEN [facility] [id number] [facility] 2024-08-22 10:15:00 2024-08-22 10:15:00 Outpatient R [facility] [id number] [facility] 2024-08-21 16:15:00 2024-08-21 16:28:52 Outpatient R CARSON GRIFFIN VIEN [facility] [id number] [facility] 2024-08-21 16:15:00 2024-08-21 16:28:52 Routine Visit Carson Griffin [facility] PROFESSIO NAL BUILDING 1.2.840.114 350.1.13.10 4.2.7.2.[id number] [facility] 2024-07-10 00:00:00 2024-08-16 18:25:36 Patient Secure Msg Doctor Unassigned, [place] Doctor Unassigned, [place] [facility] NAL BUILDING 1.2.840.114 350.1.13.10 4.2.7.2.[id number] [facility] 2024-07-10 00:00:00 2024-08-16 18:25:15 Patient Secure Msg Corina Nath [facility] PROFESSIO NAL BUILDING 1.2.840.114 350.1.13.10 4.2.7.2.[id number] [facility] 2024-07-23 16:15:00 2024-07-23 17:02:35 Outpatient R CHAVAJOANN VAZQUEZ [facility] [id number] [facility] 2024-07-23 16:15:00 2024-07-23 17:02:35 Routine Visit Carmita Joann [facility] PROFESS NAL BUILDING 1.2.840.114 350.1.13.10 4.2.7.2.[id number] [facility] 2024-07-21 16:15:00 2024-07-21 16:15:00 Outpatient R GRIFFIN CARSONCARSON CROSS [facility] [id number] [facility] 2024-07-19 00:00:00 2024-07-19 09:56:58 Nurse Triage Lucero Romero Wendy [facility] 1.2.840.114 350.1.13.10 4.2.7.2.[id number] [facility] 2024-07-10 00:00:00 2024-07-10 11:58:45 Patient Secure Msg Nath [facility] PROFESSIO NAL BUILDING 1.2.840.114 350.1.13.10 4.2.7.2.[id number] [facility] 2024-07-10 00:00:00 2024-07-10 11:26:31 Patient Secure Msg Nath [facility] PROFESSIO NAL BUILDING 1.2.840.114 350.1.13.10 4.2.7.2.[id number] [facility] 2024-07-09 00:00:00 2024-07-09 14:15:31 Carson Juan [facility] NAL BUILDING 1.2.840.114 350.1.13.10 4.2.7.2.[id number] [facility] 2024-07-08 15:20:15 2024-07-08 23:59:00 Outpatient R [facility] [id number] [facility] 2024-07-08 15:20:15 2024-07-08 23:59:00 Hospital Encounter Pham [facility] PROFESSIO NAL BUILDING 1.2.840.114 350.1.13.10 4.2.7.2.[id number] [facility] 2024-07-08 14:51:50 2024-07-08 15:19:00 Hospital Encounter Corina Nath [facility] BUILDING 1.2.840.114 350.1.13.10 4.2.7.2.[id number] [facility] 2024-07-08 00:00:00 2024-07-08 11:04:16 Case Management Joann Bulolck [facility] BUILDING 1.2.840.114 350.1.13.10 4.2.7.2.[id number] [facility] 2024-07-07 13:00:00 2024-07-07 14:26:50 Outpatient P DOLORES ASHLEY, DOLORES JAMIL [facility] [id number] [facility] 2024-07-07 13:00:00 2024-07-07 14:26:50 Legislative Director Visit 1, [facility] Room Dolores Ashley 1, [facility] Room [facility] 1.2840.114 350.1.13.10 4.2.7.2.[id number] [facility] 2024-05-22 00:00:00 2024-06-28 18:26:44 Patient Secure Msg Carson Griffin [facility] 1.2.840.114 350.1.13.10 4.2.7.2.[id number] [facility] 2024-06-27 12:15:00 2024-06-27 12:42:47 Outpatient R CARSON GRIFFIN VIEN [facility] [id number] [facility] 2024-06-27 12:15:00 2024-06-27 12:42:47 Routine Visit Carson Griffin [facility] BUILDING 1.2.840.114 350.1.13.10 4.2.7.2.[id number] [facility] 2024-06-20 09:30:00 2024-06-20 11:31:52 [facility] 1.2.840.114 350.1.13.10 4.2.7.2.[id number] [facility] 2024-06-20 10:30:00 2024-06-20 10:45:00 Legislative Director Visit 2, Adc Lab Pham [facility] BUILDING 1.2.840.114 350.1.13.10 4.2.7.2.[id number] [facility] 2024-06-20 10:30:00 2024-06-20 10:40:18 [facility] [id number] [facility] 2024-06-09 13:45:00 2024-06-09 14:51:31 Outpatient R CARSON GRIFFIN [facility] [id number] [facility] 2024-06-09 13:45:00 2024-06-09 14:00:00 Legislative Director Visit 2, Adc Lab Carson Griffin [facility] BUILDING 1.2.840.114 350.1.13.10 4.2.7.2.[id number] [facility] 2024-06-09 13:00:00 2024-06-09 13:37:59 Routine Visit Joann Bullock [facility] BUILDING 1.2.840.114 350.1.13.10 4.2.7.2.[id number] [facility] 2024-05-06 00:00:00 2024-06-07 18:20:31 Patient Secure Msg Doctor Unassigned, [place]ocl[place] [facility] 1..114 350.1.13.10 4.2.7.2.[id number] [facility] 2024-06-06 15:00:00 2024-06-06 15:00:00 Outpatient Remy CORINA NATH [facility] [id number] [facility] 2024-06-02 11:00:00 2024-06-02 11:00:00 Outpatient JOANN PIKE [facility] [id number] [facility] 2024-05-26 00:00:00 2024-05-26 09:03:23 Telephone Carson Griffin [facility]IMARY [facility] SPECIALTY CARE 1..114 350.1.13.10 4.2.7.2.[id number] [facility] 2024-05-09 10:30:00 2024-05-09 10:51:21 Outpatient R CARSON GRIFFIN CARSON [facility] [id number] [facility] 2024-05-09 10:30:00 2024-05-09 10:51:21 Legislative Director Visit Lab, Ang - Carson Saucedo [facility] 1.84.114 350.1.13.10 4.2.7.2.[id number] [facility] 2024-05-02 11:15:00 2024-05-02 11:27:58 Outpatient R CARSON GRIFFIN [facility] [id number] [facility] 2024-05-02 11:15:00 2024-05-02 11:27:58 Routine Visit Carson Griffin [facility] 1..114 350.1.13.10 4.2.7.2.[id number] [facility] 2024-04-07 11:00:00 2024-04-07 11:15:00 Legislative Director Visit Lab, Maxwell Riley Yuniel [facility] 1..840.114 350.1.13.10 4.2.7.2.[id number] [facility] 2024-04-07 11:00:00 2024-04-07 11:00:00 Outpatient R DUKE GARCIA [facility] [id number] [facility] 2024-04-03 10:00:00 2024-04-03 11:17:48 Outpatient R ELIAS CARSON [facility] [id number] [facility] 2024-04-03 10:00:00 2024-04-03 11:17:48 Office Visit Carson Griffin [facility] BUILDING 1..840.114 350.1.13.10 4.2.7.2.[id number] [facility] 2024-03-26 11:00:00 2024-03-26 11:04:53 Outpatient R CARSON GRIFFIN [facility] [id number] [facility] 2024-03-26 11:00:00 2024-03-26 11:04:53 Legislative Director Visit Lab, Maxwell Griffin [facility] 1.2.840.114 350.1.13.10 4.2.7.2.[id number] [facility] 2024-03-24 11:00:00 2024-03-24 12:46:52 Outpatient R CARSON GRIFFIN [facility] [id number] [facility] 2024-03-24 11:00:00 2024-03-24 11:15:00 Legislative Director Visit Lab, Maxwell Griffin [facility] 1.2.840.114 350.1.13.10 4.2.7.2.[id number] [facility] 2024-03-21 09:15:00 2024-03-21 09:30:00 Legislative Director Visit Lab, [facility] 1.2.840.114 350.1.13.10 4.2.7.2.[id number] [facility] 2024-03-21 08:30:00 2024-03-21 08:49:16 Outpatient R ELIAS CARSON [facility] [id number] [facility] 2024-03-21 08:30:00 2024-03-21 08:49:16 Office Visit Carson Griffin [facility] PRIMARY [facility] SPECIALTY CARE 1..840.114 350.1.13.10 4.2.7.2.[id number] [facility] 2024-03-21 00:00:00 2024-03-21 00:00:00 Patient Secure Msg Doctor Unassigned, Moclips [facility] 1.840.114 350.1.13.10 4.2.7.2.[id number] [facility] 2023-10-10 09:30:00 2023-10-10 09:30:00 Outpatient R ELIAS CARSON [facility] [id number] [facility] 2023-09-13 00:00:00 2023-09-13 00:00:00 [facility]..840.114 350.1.13.10 4.2.7.2.[id number] [facility] 2023-07-25 10:30:00 2023-07-25 11:16:42 Outpatient R ELIAS CARSON [facility] [id number] [facility] 2023-07-25 10:30:00 2023-07-25 11:16:42 Office Visit Carson Griffin [facility] 1.2.840.114 350.1.13.10 4.2.7.2.[id number] [facility] 2023-07-25 00:00:00 2023-07-25 00:00:00 Orders Only Doctor Unassigned, [place] [facility] 1.2.840.114 350.1.13.10 4.2.7.2.[id number] [facility] 2023-07-05 09:15:00 2023-07-05 09:32:33 Outpatient R CARSON GRIFFIN [facility] [id number] [facility] 2023-07-05 09:15:00 2023-07-05 09:32:33 Office Visit Carson Griffin [facility] 1.2.840.114 350.1.13.10 4.2.7.2.[id number] [facility] 2023-06-29 13:00:00 2023-06-29 13:00:00 Outpatient R DASH-CLARK S, RENNY DASH-CLARK S, RENNY [facility] [id number] [facility] 2023-06-29 00:00:00 2023-06-29 00:00:00 Patient Secure Msg Doctor Unassigned, Moclips [facility] 1.2.840.114 350.1.13.10 4.2.7.2.[id number] [facility] 2023-06-25 14:30:00 2023-06-25 15:16:00 Outpatient R CARSON GRIFFIN [facility] [id number] [facility] 2023-06-25 14:30:00 2023-06-25 15:00:00 Office Visit Carson Griffin [facility] 1.84.114 350.1.13.10 4.2.7.2.[id number] [facility] 2023-06-21 13:27:07 2023-06-21 23:59:00 Outpatient R CARSON GRIFFIN [facility] [id number] [facility] 2023-06-21 13:27:07 2023-06-21 23:59:00 Hospital Encounter Carson Griffin [facility] 1..114 350.1.13.10 4.2.7.2.[id number] [facility] 2023-06-15 13:15:00 2023-06-15 13:30:00 Legislative Director Visit Lab, Maxwell - Osvaldo [facility] 1.84.114 350.1.13.10 4.2.7.2.[id number] [facility] 2023-06-15 09:00:00 2023-06-15 09:52:45 Outpatient R CARSON GRIFFIN [facility] [id number] [facility] 2023-06-15 09:00:00 2023-06-15 09:52:45 [facility] 1.84.114 350.1.13.10 4.2.7.2.[id number] [facility] 2023-06-13 00:00:00 2023-06-13 00:00:00 Patient Secure Msg Elias [facility] BUILDING 1.84.114 350.1.13.10 4.2.7.2.[id number] [facility] 2023-03-05 00:00:00 2023-03-05 00:00:00 Patient Secure Msg Griffin, Carson [facility] 1.2840.114 350.1.13.10 4.2.7.2.[id number] [facility] 2022-10-10 13:30:00 2022-10-10 14:01:17 Outpatient CARSON PLEITEZ [facility] [id number] [facility] 2022-10-10 13:30:00 2022-10-10 14:01:17 Office Visit Chuy Fern Carson Griffin [facility] 1.2840.114 350.1.13.10 4.2.7.2.[id number] [facility] 2022-10-10 00:00:00 2022-10-10 00:00:00 Orders Only Doctor Unassigned, [place]oclips [facility] 1.2840.114 350.1.13.10 4.2.7.2.[id number] [facility] 2022-09-06 00:00:00 2022-09-06 00:00:00 Jeremy Griffin Carson [facility] 1.2840.114 350.1.13.10 4.2.7.2.[id number] [facility] 2022-08-18 10:00:00 2022-08-18 10:00:00 [id number] 2022-08-18 10:00:00 2022-08-18 10:00:00 Outpatient Remy GRIFFIN [facility] [id number] [facility] 2021-12-14 00:00:00 2021-12-14 00:00:00 Orders Only Doctor Unassigned, [place] [facility] 1.2840.114 350.1.13.10 4.2.7.2.[id number] [facility] 2021-11-11 10:30:00 2021-11-11 11:29:20 Outpatient R CARSON GRIFFIN [facility] [id number] [facility] 2021-11-11 10:30:00 2021-11-11 11:29:20 Office Visit Carson Griffin [facility] 1.2.840.114 350.1.13.10 4.2.7.2.[id number] [facility] 2021-11-02 00:00:00 2021-11-02 00:00:00 Patient Secure Msg Elias [facility] 1.2.840.114 350.1.13.10 4.2.7.2.[id number] [facility] 2021-08-12 10:48:02 2021-08-12 11:57:29 Office Visit Carson Griffin [facility] 1.2.840.114 350.1.13.10 4.2.7.2.[id number] [facility] 2021-08-12 11:00:00 2021-08-12 11:00:00 Outpatient R CARSON GRIFFIN [facility] [id number] [facility] 2021-08-12 00:00:00 2021-08-12 00:00:00 Orders Only Doctor Unassigned, [place] [facility] 1.2.840.114 350.1.13.10 4.2.7.2.[id number] [facility] 2020-02-18 06:32:00 2020-02-18 06:32:00 Outpatient TYLER ARAMBULA SHANNON [facility] ISIAH [id number] [facility] Results Test Description Test Time Test Comments Results Result Co mments Source [facility] [id number] 12:13:57* Test Item Value Reference Range Interpretation Comme nts WBC (test code = 6690-2) 11.14 4.30-11.10 H RBC (test code = 789-8) 3.55 3.93-5.25 L HGB (test code = 718-7) 11.1 g/dL 11.6-15.0 L HCT (test code = 4544-3) 33.3 % 35.7-45.2 L MCV (test code = 787-2) 93.8 fL 80.6-95.5 MCH (test code = 785-6) 31.3 pg 25.9-32.8 MCHC (test code = 786-4) 33.3 g/dL 31.6-35.1 RDW-SD (test code = 62022-9) 44.7 fL 39.0-49.9 RDW-CV (test code = 788-0) 13.0 % 12.0-15.5 PLT (test code = 777-3) 209 166-358 MPV (test code = 79497-4) 12.6 fL 9.5-12.9 NRBC/100 WBC (test code = 6335291451) 0.0 0.0-10.0 NRBC x10^3 (test code = 0911156401) See_Comment [Automated messa ge] The system which generated this result transmitted reference range: 10*3/?L. The reference range was not used to interpret this result as normal/abnormal. GRAN MAT (NEUT) % (test code = 770-8) 75.2 % IMM GRAN % (test code = 1605530783) 0.30 % LYMPH % (test code = 736-9) 16.8 % MONO % (test code = 5905-5) 7.2 % EOS % (test code = 713-8) 0.2 % BASO % (test code = 706-2) 0.3 % GRAN MAT x10^3(ANC) (test code = 8786093454) 8.39 10*3/uL 1.88-7.09 H IMM GRAN x10^3 (test code = 1962666321) 0.03 10*3/uL 0.00-0.06 LYMPH x10^3 (test code = 731-0) 1.87 10*3/uL 1.32-3.29 MONO x10^3 (test code = 742-7) 0.80 10*3/uL 0.33-0.92 EOS x10^3 (test code = 711-2) 0.03-0.39 L BASO x10^3 (test code = 704-7) 0.03 10*3/uL 0.01-0.07 Lab Interpretation (test code = 39968-4) Abnormal [facility] B Surface [id number] 07:32:10 * Test Item Value Reference Range Interpretation Comme nts HBsAg Semi-Quantitative (kurt t code = 5195-3) 0.06 Negative [facility] B Surface [id number] 07:32:10 * Test Item Value Reference Range Interpretation Comme nts HBsAg Semi-Quantitative (kurt t code = 5195-3) 0.06 Negative [facility] OR MP ONLY - [id number] 05:57:19* Test Item Value Reference Range Interpretation Comme nts RPR (Qualitative) (test code = 64187-8) Nonreactive Nonreactive Lab Interpretation (test cod e = 04071-2) Normal [facility] OR MP ONLY - [id number] 05:57:19* Test Item Value Reference Range Interpretation Comme nts RPR (Qualitative) (test code = 85633-9) Nonreactive Nonreactive Lab Interpretation (test cod e = 56473-3) Normal [facility] (D) IMMUNE [id number] 04:32:34* Test Item Value Reference Range Interpretation Comme nts RHIG CANDIDATE? (test code = 5188) No- see comment Patient is not a candidate for RhIg- Patient is Rh Positive.Performed at [facility] Laboratory [facility] Blood [address] [place] [address]Edwm Free: [phone] No. [id number] [facility] (D) IMMUNE [id number] 04:32:34* Test Item Value Reference Range Interpretation Comme nts RHIG CANDIDATE? (test code = 5188) No- see comment Patient is not a candidate for RhIg- Patient is Rh Positive.Performed at [facility] Laboratory Services - [facility] Blood [address] [place] [address]Ybjt Free: [phone] No. [id number] [facility] 1/2 Ag-Ab with Rvbbzd4301-01-04 01:26:40* Test Item Value Reference Range Interpretation Comme nts HIV Semi-quantitative (test code = 88107-9) 0.14 Negative SAMANTHA (test code = SAMANTHA) Non-reactive for HIV-1 antigen and HIV-1/HIV-2 antibodies. ?No laboratory evidence of HIV infection. ?Repeat in 2-4 weeks if acute HIV infection is suspected. [facility] 1/2 Ag-Ab with [id number] 01:26:40* Test Item Value Reference Range Interpretation Comme nts HIV Semi-quantitative (test code = 30737-1) 0.14 Negative SAMANTHA (test code = SAMANTHA) Non-reactive for HIV-1 antigen and HIV-1/HIV-2 antibodies. ?No laboratory evidence of HIV infection. ?Repeat in 2-4 weeks if acute HIV infection is suspected. [facility] Nkokwwflacyg7382-82-48 22:57:13* Test Item Value Reference Range Interpretation Comme nts WBC (test code = 6690-2) 8.82 4.30-11.10 RBC (test code = 789-8) 3.87 3.93-5.25 L HGB (test code = 718-7) 11.9 g/dL 11.6-15.0 HCT (test code = 4544-3) 35.9 % 35.7-45.2 MCV (test code = 787-2) 92.8 fL 80.6-95.5 MCH (test code = 785-6) 30.7 pg 25.9-32.8 MCHC (test code = 786-4) 33.1 g/dL 31.6-35.1 RDW-SD (test code = 47688-6) 44.3 fL 39.0-49.9 RDW-CV (test code = 788-0) 13.0 % 12.0-15.5 PLT (test code = 777-3) 251 166-358 MPV (test code = 80401-6) 12.1 fL 9.5-12.9 NRBC/100 WBC (test code = 9838904956) 0.0 0.0-10.0 NRBC x10^3 (test code = 0744777374) See_Comment [Automated messa ge] The system which generated this result transmitted reference range: 10*3/?L. The reference range was not used to interpret this result as normal/abnormal. GRAN MAT (NEUT) % (test code = 770-8) 70.3 % IMM GRAN % (test code = 1081873361) 0.20 % LYMPH % (test code = 736-9) 21.7 % MONO % (test code = 5905-5) 6.9 % EOS % (test code = 713-8) 0.7 % BASO % (test code = 706-2) 0.2 % GRAN MAT x10^3(ANC) (test code = 8381315409) 6.20 10*3/uL 1.88-7.09 IMM GRAN x10^3 (test code = 9759331051) 0.00-0.06 LYMPH x10^3 (test code = 731-0) 1.91 10*3/uL 1.32-3.29 MONO x10^3 (test code = 742-7) 0.61 10*3/uL 0.33-0.92 EOS x10^3 (test code = 711-2) 0.06 10*3/uL 0.03-0.39 BASO x10^3 (test code = 704-7) 0.01-0.07 Lab Interpretation (test code = 36288-8) Abnormal [facility] with [id number] 22:57:13* Test Item Value Reference Range Interpretation Comme nts WBC (test code = 6690-2) 8.82 4.30-11.10 RBC (test code = 789-8) 3.87 3.93-5.25 L HGB (test code = 718-7) 11.9 g/dL 11.6-15.0 HCT (test code = 4544-3) 35.9 % 35.7-45.2 MCV (test code = 787-2) 92.8 fL 80.6-95.5 MCH (test code = 785-6) 30.7 pg 25.9-32.8 MCHC (test code = 786-4) 33.1 g/dL 31.6-35.1 RDW-SD (test code = 50516-3) 44.3 fL 39.0-49.9 RDW-CV (test code = 788-0) 13.0 % 12.0-15.5 PLT (test code = 777-3) 251 166-358 MPV (test code = 81913-7) 12.1 fL 9.5-12.9 NRBC/100 WBC (test code = 1278149569) 0.0 0.0-10.0 NRBC x10^3 (test code = 4990853407) See_Comment [Automated messa ge] The system which generated this result transmitted reference range: 10*3/?L. The reference range was not used to interpret this result as normal/abnormal. GRAN MAT (NEUT) % (test code = 770-8) 70.3 % IMM GRAN % (test code = 6186070653) 0.20 % LYMPH % (test code = 736-9) 21.7 % MONO % (test code = 5905-5) 6.9 % EOS % (test code = 713-8) 0.7 % BASO % (test code = 706-2) 0.2 % GRAN MAT x10^3(ANC) (test code = 2216248042) 6.20 10*3/uL 1.88-7.09 IMM GRAN x10^3 (test code = 6478584825) 0.00-0.06 LYMPH x10^3 (test code = 731-0) 1.91 10*3/uL 1.32-3.29 MONO x10^3 (test code = 742-7) 0.61 10*3/uL 0.33-0.92 EOS x10^3 (test code = 711-2) 0.06 10*3/uL 0.03-0.39 BASO x10^3 (test code = 704-7) 0.01-0.07 Lab Interpretation (test code = 09201-1) [facility] [id number] 22:34:00 * Test Item Value Reference Range Interpretation Comme nts ABO & RH (test code = 20) O POSITIVE IAT (test code = 1185) Negative [facility] [id number] 22:34:00 * Test Item Value Reference Range Interpretation Comme nts ABO & RH (test code = 20) O POSITIVE IAT (test code = 1185) Negative [facility]o Specific [id number] 17:23:00* Test Item Value Reference Range Interpretation Comme nts POCT PH U (test code = 3254) na 5-8 POCT U LEUK EST (test code = 3263) na Negative - N egative POCT U NIT (test code = 3262) na Negative - Negati ve POCT U PROT (test code = 3259) neg Negative - Negat thais POCT U GLU (test code = 3256) neg Negative - Negati ve POCT U KETONE (test code = 3258) na Negative - Neg ative POCT U BLD (test code = 3257) na Negative - Negati ve [facility]o Specific [id number] 22:26:00* Test Item Value Reference Range Interpretation Comme nts POCT PH U (test code = 3254) n/a 5-8 POCT U LEUK EST (test code = 3263) n/a Negative - Negative POCT U NIT (test code = 3262) n/a Negative - Negati ve POCT U PROT (test code = 3259) negative Negative - Negat thais POCT U GLU (test code = 3256) negative Negative - Negati ve POCT U KETONE (test code = 3258) n/a Negative - Neg ative POCT U BLD (test code = 3257) n/a Negative - [facility]ati ve [facility] Specific [id number] 22:11:00* Test Item Value Reference Range Interpretation Comme nts POCT PH U (test code = 3254) n/a 5-8 POCT U LEUK EST (test code = 3263) na/ Negative - Negative POCT U NIT (test code = 3262) n/a Negative - Negati ve POCT U PROT (test code = 3259) negative Negative - Negat thais POCT U GLU (test code = 3256) negative Negative - Negati ve POCT U KETONE (test code = 3258) n/a Negative - Neg ative POCT U BLD (test code = 3257) n/a Negative - [facility]ati ve [facility]o Specific [id number] 21:16:00* Test Item Value Reference Range Interpretation Comme nts POCT PH U (test code = 3254) n/a 5-8 POCT U LEUK EST (test code = 3263) n/a Negative - Negative POCT U NIT (test code = 3262) n/a Negative - Negati ve POCT U PROT (test code = 3259) Negative Negative - Negat thais POCT U GLU (test code = 3256) Normal Negative - Negati ve POCT U KETONE (test code = 3258) n/a Negative - Neg ative POCT U BLD (test code = 3257) n/a Negative - Negati ve [facility] Urinalysis w/o Specific [id number] 21:41:00* Test Item Value Reference Range Interpretation Comme nts POCT PH U (test code = 3254) n.a 5-8 POCT U LEUK EST (test code = 3263) n.a Negative - Negative POCT U NIT (test code = 3262) n.a Negative - Negati ve POCT U PROT (test code = 3259) negative Negative - Negat thais POCT U GLU (test code = 3256) negative Negative - Negati ve POCT U KETONE (test code = 3258) n.a Negative - Neg ative POCT U BLD (test code = 3257) n.a Negative - Negati ve [facility]2024-07-09 00:15:41* Test Item Value Reference Range Interpretation Comme nts Height (test code = 3942524261) 68 in Weight (test code = 1655260830) 209 lbs Systolic BP (test code = 5553051746) 101 mmHg Diastolic BP (test code = 9901996771) 48 mmHg Heart Rate (test code = 7141406484) 70 bpm RVOT diameter (test code = 1498738882) 2.16 cm RVOT Proximal Diameter (test code = 2079491053) 2.70 cm Ao root diam (test code = 1802320347) 2.70 cm Aortic root (test code = 7821796107) 2.7 cm Ao root annulus (test code = 1850119705) 2.7 cm BSA (test code = 5245001276) 2.08 m2 LVOT diameter (test code = 5368433462) 2.13 cm LVOT area (test code = 5566865177) 3.60 cm2 LA size (test code = 4075711485) 2.40 cm ACS (test code = 2455257895) 2.04 cm LVIDD (test code = 5804769308) 5.10 cm Left Ventricular End Diastolic Volume by Teichholz Method (test code = 4482864) 123.0 mL IVS (test code = 1080801280) 1.06 cm Interventricular Septum Diastolic Thickness by 2D (test code = 6374441) 1.06 cm LVPWD (test code = 1776630960) 0.94 cm PW (test code = 7611719150) 0.94 cm 0.6-1.1 EF(Teich) (test code = 0815378426) 60.30 % LVIDS (test code = 4181141042) 3.40 cm Left Ventricular End Systolic Volume by Teichholz Method (test code = 3354876) 48.8 mL FS (test code = 7023009171) 32 % EF - 2D (test code = 99920870) 60.30 % TR Peak Brian (test code = 3694370015) 223.0 cm/s Triscuspid Valve Regurgitation Peak Gradient (test code = 7580681558) 19.9 mmHg PV PEAK VELOCITY (test code = 7689982022) 90.1 cm/s PV peak gradient (test code = 5466382644) 3.2 mmHg MV E-F slope (test code = 5236342823) 36.80 cm/s MV Peak E Brian (test code = 7813427723) 84.4 cm/s MV valve area p 1/2 method (test code = 8550434778) 3.10 cm2 MV dec slope (test code = 9834966174) 344.20 cm/s2 MV P1/2t max brian (test code = 1534045171) 83.80 cm/s MV Peak A Brian (test code = 0817882150) 71.3 cm/s E/A ratio (test code = 4719453319) 1.18 ratio LVOT stroke volume (test code = 7286415835) 73.40 cm3 LVOT peak brian (test code = 1843186827) 114.2 cm/s LVOT mn grad (test code = 7730003767) 2.5 mmHg AV LVOT peak gradient (test code = 0123245112) 5.2 mmHg LVOT peak VTI (test code = 5856740355) 20.6 cm LV V1 mean (test code = 4479058627) 72.30 cm/s Aortic valve mean velocity (test code = 4374184247) 84.0 cm/s Ao peak brian (test code = 5004309130) 147.6 cm/s Ao VTI (test code = 2150570445) 28.1 cm AV area by cont VTI (test code = 1941920349) 2.6 cm2 AV area peak brian (test code = 5713978876) 2.8 cm2 Ao max PG (test code = 1310506801) 8.70 mm[Hg] AV peak gradient (test code = 3494389982) 8.7 mmHg AV valve area (test code = 0926539560) 2.60 cm2 AV mean gradient (test code = 2378063356) 3.5 mmHg LAV(MOD-sp4) (test code = 9806335836) 36.40 mL LA Volume Index (BP) (test code = 4003713716) 20.4 mL/m2 LA volume (BP) (test code = 9182604847) 42.4 mL LAV(MOD-sp2) (test code = 1198561537) 40.00 mL RVOT area (test code = 4013649244) 3.66 cm2 Radiology Study observation (narrative) (test code = 06982-1) SAMANTHA (test code = SAMANTHA) ?Left?Ventricle: Left ventricle size is normal. Normal wall thickness. Normal wall motion. Normal systolic function with a visually estimated EF of 55 - 60%. Normal diastolic function. ?Right?Ventricle: Right ventricle size is normal. Normal systolic function. ?Tricuspid?Valve: Insufficient tricuspid regurgitation jet to estimate RVSP, but probably normal. ?RA pressure is 0-5 mmHg. Left VentricleLeft ventricle size is normal. Normal wall thickness. Normal wall motion. Normal systolic function with a visually estimated EF of 55 - 60%. Normal diastolic function.Right VentricleRight ventricle size is normal. Normal systolic function.Left AtriumLeft atrium size is normal.Right AtriumRight atrium size is normal.IVC/SVCIVC diameter is less than or equal to 21 mm and decreases greater than 50% during inspiration; therefore the estimated right atrial pressure is normal (~0-5 mmHg).Mitral ValveMitral valve structure is normal. Trace transvalvular regurgitation.Tricusp id ValveTricuspid valve structure is normal. Trace transvalvular regurgitation. Insufficient tricuspid regurgitation jet to estimate RVSP, but probably normal. RA pressure is 0-5 mmHg.Aortic ValveTricuspid.Pulmon ic ValveValve structure is normal. Trace transvalvular regurgitation.Ascendi ng AortaNormal sized aorta.PericardiumThe pericardium is normal. No pericardial effusion.Study DetailsStudy quality experienced technical difficulty. A complete echocardiogram was performed using 2D, color flow Doppler and spectral Doppler. [facility] Urinalysis w/o Specific [id number] 17:19:00* Test Item Value Reference Range Interpretation Comme nts POCT PH U (test code = 3254) n/a 5-8 POCT U LEUK EST (test code = 3263) n/a Negative - Negative POCT U NIT (test code = 3262) n/a Negative - Negati ve POCT U PROT (test code = 3259) negative Negative - Negat thais POCT U GLU (test code = 3256) negative Negative - Negati ve POCT U KETONE (test code = 3258) n/a Negative - Neg ative POCT U BLD (test code = 3257) n/a Negative - Negati ve [facility] Urinalysis w/o Specific [id number] 18:15:00* Test Item Value Reference Range Interpretation Comme nts POCT PH U (test code = 3254) n.a 5-8 POCT U LEUK EST (test code = 3263) n.a Negative - Negative POCT U NIT (test code = 3262) n.a Negative - Negati ve POCT U PROT (test code = 3259) negative Negative - Negat thais POCT U GLU (test code = 3256) normal Negative - Negati ve POCT U KETONE (test code = 3258) n.a Negative - Neg ative POCT U BLD (test code = 3257) n.a Negative - Negati ve [facility] Urinalysis w/o Specific [id number] 16:15:00* Test Item Value Reference Range Interpretation Comme nts POCT PH U (test code = 3254) N/A 5-8 POCT U LEUK EST (test code = 3263) N/A Negative - Negative POCT U NIT (test code = 3262) N/A Negative - Negati ve POCT U PROT (test code = 3259) Negative Negative - Negat thais POCT U GLU (test code = 3256) Negative Negative - Negati ve POCT U KETONE (test code = 3258) N/A Negative - Neg ative POCT U BLD (test code = 3257) N/A Negative - Negati ve [facility] Urinalysis w/o Specific [id number] 15:25:00* Test Item Value Reference Range Interpretation Comme nts POCT PH U (test code = 3254) n/a 5-8 POCT U LEUK EST (test code = 3263) n/a Negative - Negative POCT U NIT (test code = 3262) n/a Negative - Negati ve POCT U PROT (test code = 3259) Negative Negative - Negat thais POCT U GLU (test code = 3256) Normal Negative - Negati ve POCT U KETONE (test code = 3258) n/a Negative - Neg ative POCT U BLD (test code = 3257) n/a Negative - Negati ve [facility] Urinalysis w/o Specific [id number] 15:25:00* Test Item Value Reference Range Interpretation Comme nts POCT PH U (test code = 3254) n/a 5-8 POCT U LEUK EST (test code = 3263) n/a Negative - Negative POCT U NIT (test code = 3262) n/a Negative - Negati ve POCT U PROT (test code = 3259) Negative Negative - Negat thais POCT U GLU (test code = 3256) Normal Negative - Negati ve POCT U KETONE (test code = 3258) n/a Negative - Neg ative POCT U BLD (test code = 3257) n/a Negative - Negati ve [facility] [id number] 13:33:00* Test Item Value Reference Range Interpretation Comme nts POCT PREG (test code = 1605) Positive On board controls acceptable with C Line (test code = 3574) Yes POCT PREG LOT # (test code = 3575) POCT PREG TEST DATE ( test code = 3576) [facility] [id number] 13:33:00* Test Item Value Reference Range Interpretation Comme nts POCT PREG (test code = 1605) Positive On board controls acceptable with C Line (test code = 3574) Yes POCT PREG LOT # (test code = 3575) POCT PREG TEST DATE ( test code = 3576) [facility] [id number] 15:57:00* Test Item Value Reference Range Interpretation Comme nts POCT PREG (test code = 1605) Negative f On board controls acceptable with C Line (test code = 3574) Yes POCT PREG LOT # (test code = 3575) POCT PREG TEST DATE ( test code = 3576) [facility] [id number] 15:57:00* Test Item Value Reference Range Interpretation Comme nts POCT PREG (test code = 1605) Negative f On board controls acceptable with C Line (test code = 3574) Yes POCT PREG LOT # (test code = 3575) POCT PREG TEST DATE ( test code = 3576) [facility] [id number] 19:36:00* Test Item Value Reference Range Interpretation Comme nts POCT PREG (test code = 1605) Negative On board controls acceptable with C Line (test code = 3574) Yes POCT PREG LOT # (test code = 3575) POCT PREG TEST DATE ( test code = 3576) [facility] [id number] 19:36:00* Test Item Value Reference Range Interpretation Comme nts POCT PREG (test code = 1605) Negative On board controls acceptable with C Line (test code = 3574) Yes POCT PREG LOT # (test code = 3575) POCT PREG TEST DATE ( test code = 3576) [facility] [id number] 14:21:00* Test Item Value Reference Range Interpretation Comme nts POCT PREG (test code = 1605) Negative On board controls acceptable with C Line (test code = 3574) Yes POCT PREG LOT # (test code = 3575) POCT PREG TEST DATE ( test code = 3576) [facility] [id number] 14:21:00* Test Item Value Reference Range Interpretation Comme nts POCT PREG (test code = 1605) Negative On board controls acceptable with C Line (test code = 3574) Yes POCT PREG LOT # (test code = 3575) POCT PREG TEST DATE ( test code = 3576) [facility] History and Physical Notes Date/Time Note Provider Source 2024-10-31 15:29:44 TRIAGE HISTORY & PHYSICAL IDENTIFYING DATA Azra Martino is 39 year old, /White, 37w0d, female with ANNMARIE 11/21/2024, by Last Menstrual Period. : 1985 Primary Care Physician: PATIENT DOES NOT HAVE A PCP CHIEF COMPLAINT Sent from clinic for delivery HISTORY OF PRESENT ILLNESS Azra Martino is a 39 year old female @ 37w0d sent from clinic for delivery due to labor and breech presentation. +FM. No VB or LOF. + CTX. No pre-eclampsia sx or other complaints. PAST OBSTETRIC HISTORY OB History Para Term AB Living 3 2 2 0 0 2 SAB IAB Ectopic Multiple Live Births 0 2 # Outcome Date GA Lbr Luis Alberto/2nd Weight Sex Type Anes PTL Lv 3 Current 2 Term 02/18/20 38w2d 3540 g F , L CSE LION 1 Term 03/05/19 41w0d 3317 g M Vag-Spont LION Complications: Breech presentation PAST MEDICAL HISTORY Problem list: Patient Active Problem List Diagnosis Date Noted Normal labor 10/31/2024 37 weeks gestation of 10/31/2024 Pain of round ligament complicating , antepartum 10/02/2024 Pelvic pain during in third trimester, antepartum 10/02/2024 Shortness of breath 06/20/2024 Palpitations 06/20/2024 High-risk in third trimester 04/03/2024 Previous section 04/03/2024 Antepartum multigravida of advanced maternal age 0504/03/2024 Anxiety and depression 04/03/2024 Obesity (BMI 30-39.9) 02/18/2020 Breech presentation 02/18/2020 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 History of loop electrical excision procedure (LEEP) 02/18/2020 Operations: Past Surgical History: Procedure Laterality Date SECTION N/A 02/18/2020 Surgeon: Eleazar Marti MD; Location: Labor and Delivery - [place] CONIZATION CERVIX,LOOP ELECTRD 2006 EXTERNAL CEPHALIC VERSION N/A 02/18/2020 Surgeon: Eleazar Marti MD; Location: Labor and Delivery - [place] Past Medical History: Diagnosis Date Anxiety Chlamydia treated in [facility] Depression Pap smear abnormality of cervix 2006 had colpo and leep PMS (premenstrual syndrome) 08/12/2021 CURRENT HEALTH STATUS Medications: Current Facility-Administered Medications Medication Dose Route Frequency Last Rate Last Admin azithromycin (ZITHROMAX) 500 mg in NaCl 0.9% (NS) 250 mL VIAL-MATE IV piggyback 500 mg IV Piggyback O.R. HOLDING ONCE carboprost (HEMABATE) injection 250 mcg 250 mcg Intramuscular Q2HPRN ceFAZolin (ANCEF) 2,000 mg in NaCl 0.9% (NS) 100 mL MINI-BAG 2,000 mg IV Piggyback O.R. HOLDING ONCE D5W-LR IV infusion 1,000 mL 1,000 mL IV Infusion TITRATE lactated ringers IV infusion 250 mL 250 mL IV Infusion PRN - SEE INSTRUCTIONS lidocaine 1% (PF) (XYLOCAINE) injection 0.3 mL 0.3 mL Infiltration PRN - SEE INSTRUCTIONS methylergonovine (METHERGINE) injection 0.2 mg 0.2 mg Intramuscular Q4HPRN miSOPROStoL (CYTOTEC) tablet 200 mcg 200 mcg Rectal PRN oxytocin (PITOCIN) 30 units in NS 500 mL IV infusion 600 mL/hr IV Infusion PRN sodium citrate-citric acid (BICITRA) 500-334 mg/5 mL solution 30 mL 30 mL Oral PRE-PROCEDURE ONCE terbutaline (BRETHINE) injection 0.25 mg 0.25 mg Subcutaneous PRN tranexamic acid in (ISO-OS) sodium chloride 1,000 mg/100 mL (10 mg/mL) IV 1,000 mg 1,000 mg IV Piggyback PRN Allergies and drug reactions: Patient has no known allergies. HOME MEDICATIONS Medications Prior to Admission Medication Sig Dispense Refill Last Dose valACYclovir (VALTREX) 500 mg tablet Take 1 tablet by mouth in the morning and 1 tablet in the evening. 60 tablet 2 Taking citalopram 40 mg tablet Take 1 tablet by mouth in the morning. 30 tablet 1 Taking hydrocortisone 25 mg suppository Insert 1 Suppository into rectum in the morning and 1 Suppository in the evening. 10 Suppository 1 Taking aspirin 81 mg EC tablet Take 1 tablet by mouth in the morning. 30 tablet 6 Taking vit no.124/iron/folic ( VITAMIN ORAL) Take by mouth. Taking SOCIAL HISTORY Tobacco History: Social History Tobacco Use Smoking Status Never Passive exposure: Never Smokeless Tobacco Never Drug History: Social History Substance and Sexual Activity Drug Use Never Alcohol History: Social History Substance and Sexual Activity Alcohol Use Not Currently Comment: FAMILY HISTORY Family History Problem Relation Age of Onset Hypertension Mother Hypertension Father Muscular dystrophy Son REVIEW OF SYSTEMS General: negative Constitutional: negative Eyes: negative ENT/Mouth: negative Cardiovascular: negative Respiratory: negative Gastrointestinal:negative Genitourinary: negative Musculoskeletal: negative Skin/breast: negative Neurological: negative Psychiatric: negative Endocrine: negative Hemat/Lymph: negative Allergic/Immuno:none VITAL SIGNS BP: (121)/(77) Temp: [36.8 ?C (98.2 ?F)] Temp source: Oral (10/31 1320) Pulse: [76] Resp: [18] SpO2: -- Height: [172.7 cm (5' 8")] Weight: [103.7 kg (228 lb 11.2 oz)] BMI (calculated): [34.77] PHYSICAL EXAMINATIONS Gen: alert and oriented, well appearing, no distress CV: RRR, normal S1/S2, no m/r/g Resp: normal work of breathing, lungs CTAB Abd: gravid, soft, NTTP Ext: no calf tenderness or edema : SVE 250/-3 REVIEW OF LABORATORY, PATHOLOGY, AND RADIOLOGY DATA Lab results: Type & Screen HIV Hep B Syphilis Chlamydia ABO & RH Date Value Ref Range Status 08/22/2024 O POSITIVE Final No results found for: "HIVMULTIPLEX" No components found for: "HBSHBSAG" Syphilis IgG/IgM Date Value Ref Range Status 02/18/2020 Non-reactive Non-reactive Final C. trachomatis Nucleic Acid Date Value Ref Range Status 10/17/2024 Negative Negative Final IAT Date Value Ref Range Status 08/22/2024 Negative Final Varicella Rubella Glucose Group B Strep CBC VZV IgG antibody Date Value Ref Range Status 04/07/2024 Positive Negative Final Rubella screen IgG Date Value Ref Range Status 04/07/2024 Positive Negative Final GLUC 1 HR Date Value Ref Range Status 08/22/2024 111 (L) 120 - 170 mg/dL Final No results found for: "CGBS" HGB Date Value Ref Range Status 10/27/2024 11.8 11.6 - 15.0 g/dL Final HCT Date Value Ref Range Status 10/27/2024 35.9 35.7 - 45.2 % Final PLT Date Value Ref Range Status 10/27/2024 249 166 - 358 10*3/?L Final Active Hospital Problems Diagnosis Date Noted Normal labor 10/31/2024 37 weeks gestation of 10/31/2024 Previous section 04/03/2024 High-risk in third trimester 04/03/2024 Antepartum multigravida of advanced maternal age 0504/03/2024 Anxiety and depression 04/03/2024 Breech presentation 02/18/2020 Obesity (BMI 30-39.9) 02/18/2020 Resolved Hospital Problems No resolved problems to display. Present on Admission: Breech presentation Obesity (BMI 30-39.9) High-risk in third trimester Antepartum multigravida of advanced maternal age Anxiety and depression ASSESSMENT AND PLAN Azra Martino is a 39 year old at 37w0d by who admits for delivery due to labor and breech presentation. x 1 and CD x 1 and breech presentation and normal labor - reinaldo regularly on toco - admits for repeat History of anxiety/depression -On citalopram 40 mg daily PVT of Dr. Griffin, please see OB summary for more details Carson Griffin MD T ENGINEER [facility]
[2024-11-12 07:15] LABS: Specific Gravity 1.009 (1.005-1.030); Sqamous Epithelial None Seen /HPF (None Seen); Urine Bacteria None Seen /HPF (<20); Urine Bilirubin NEGATIVE (Negative); Urine Blood 3+ (OVER) (Negative); Urine Clarity Extremely Turbid (Clear); Urine Color Light-Brown (Yellow); Urine Culture Reflex Order NOT NEEDED; Urine Glucose NEGATIVE (Negative); Urine Ketones NEGATIVE (Negative); Urine Microscopic Reflex YN ORDER UMIC; Urine Nitrite NEGATIVE (Negative); Urine Protein NEGATIVE (Negative); Urine RBC >50 /HPF (None Seen); Urine Urobilinogen Normal (Normal); Urine WBC <5 /HPF (<5); Urine pH 5.5 (5.0-7.0)
[2024-11-12] MEDS ORDERED: KETOROLAC 30 MG/ML INJ ONE (07:19)
[2024-11-12] MEDS ORDERED: ONDANSETRON 4 MG/2 ML VIAL ONE (07:19)
[2024-11-12] MEDS ORDERED: DICYCLOMINE HCL 10 MG CAP ONE (07:19)
[2024-11-12] MEDS ORDERED: NA CHLORIDE 0.9% 1,000 ML ONE (07:20)
[2024-11-12 07:26] LABS: Absolute Basophils 0.1 K/uL (0-0.5); Absolute Eosinophils 0.4 K/uL (0-0.5); Absolute Lymphocytes (CBC) 2.3 K/uL (0.7-4.9); Absolute Monocytes 0.8 K/uL (0.1-1.3); Absolute Neutrophil 7.2 K/uL (1.8-8.0); Basophils % 0.7 % (0-1.3); Eosinophils % 3.5 % (0-4.4); Hematocrit 36.5 % (36.0-45.0); Hemoglobin 11.9 g/dL (12.0-15.0); MCH 30.3 pg (27.0-35.0); MCHC 32.7 g/dL (32.0-36.0); MCV 92.6 fL (80-100); MPV 9.8 fL (7.6-11.3); Monocytes % 7.7 % (3.3-12.3); Neutrophils % 67.1 % (41.7-73.7); Platelets 364 thou/uL (152-406); RBC Red Blood Cell Count 3.94 M/uL (3.86-4.86); Red Cell Distribution Width 13.1 % (12.1-15.2)
[2024-11-12 07:43] LABS: Albumin 3.3 g/dL (3.4-5.0); Albumin/Globulin Ratio 0.9 (1.1-1.8); Anion Gap 9.6 mEq/L (5.0-15.0); Bilirubin Total 0.5 mg/dL (0.2-1.0); Globulin 3.7 g/dL (2.3-3.5); Potassium 3.6 mEq/L (3.5-5.1)
--- NOTE | 2024-11-12 08:20 | RAD REPORT ---
EXAMINATION: US PELVIS TRANSABDOMINAL WITH DOPPLER CLINICAL INDICATION: ABD PAIN TECHNIQUE: Real-time ultrasonography of the pelvis was performed transabdominally. Color and spectral Doppler evaluation of the ovaries was performed. COMPARISON: No prior exam. FINDINGS: UTERUS AND CERVIX: The uterus measures 13.0 x 10.4 x 8.1 cm (cervix to fundus x AP x transverse). The uterus is normal. No masses seen The endometrium is significantly dilated measuring up to 7 cm. There is marked heterogenous material within the endometrium solid and cystic components. RIGHT OVARY: Normal The right ovary measures 2.6 x 2.3 x 2.1 cm. Normal color and spectral Doppler ev aluation of the right ovary.. LEFT OVARY: Normal The left ovary measures 3.0 x 2.3 x 2.0 cm. Normal Color and spectral Doppler ev aluation of the left ovary.. FREE FLUID: No free fluid. ADDITIONAL FINDINGS: IMPRESSION: Markedly dilated endometrial stripe measuring up to 7 cm with heterogenous material present. Consider hysteroscopy for further evaluation.
--- NOTE | 2024-11-12 08:55 | EDPHYS ---
Physician Documentation [facility] Name: Alla Huff Age: 39 yrs Sex: Female : 1985 Arrival Date: 11/12/2024 Time: 06:33 Bed 7 Private MD: ED Physician Erickson Grijalva HPI: 11/12 06:46 This 39 yrs old Female presents to ER via Unassigned with complaints of 2 sp4 weeks post op cesection., Abdominal Cramping, Vaginal Bleeding. 06:47 39-year-old female who has had on 10/31/2024 at [facility] by Dr. Dudley, sp4 postoperative day 11, presents with vaginal bleeding vaginal cramping starting suddenly this morning. . 06:52 Patient states she is -0-0-3 history of 2 C-sections last 10/31/2024 sp4 patient delivered at 37 weeks 0 days . 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 - Infectious Disease History:: Denies. Denies. - Family history:: not pertinent. - Social history:: Smoking status: Patient denies any tobacco usage or history of. Smoking status: unknown. ROS: 06:52 Constitutional: Negative for fever, chills, and weight loss, positive vaginal bleeding sp4 positive vaginal cramping 06:52 All other systems are negative, Exam: 06:53 Constitutional: This is a well developed, well nourished patient who is awake, alert, sp4 and in no acute distress. Head/Face: Normocephalic, atraumatic. Eyes: Pupils equal round and reactive to light, extra-ocular motions intact. Lids and lashes normal. Conjunctiva and sclera are not injected. Cornea within normal limits. Periorbital areas with no swelling, redness, or edema. ENT: Nares patent. No nasal discharge, no septal abnormalities noted. Tympanic membranes are normal and external auditory canals are clear. Oropharynx with no redness, swelling, or masses, exudates, or evidence of obstruction, uvula midline. Mucous membranes moist. Neck: Trachea midline, no thyromegaly or masses palpated, and no cervical lymphadenopathy. Supple, full range of motion without nuchal rigidity, or vertebral point tenderness. Chest/axilla: Normal chest wall appearance and motion. Nontender with no deformity. No lesions are appreciated. Cardiovascular: Regular rate and rhythm with a normal S1 and S2. No gallops, murmurs, or rubs. Normal PMI, no JVD. No pulse deficits. Respiratory: Lungs have equal breath sounds bilaterally, clear to auscultation and percussion. No rales, rhonchi or wheezes noted. No increased work of breathing, no retractions or nasal flaring. Abdomen/GI: Soft, with normal bowel sounds. No distension or tympany. No guarding or rebound. No evidence of tenderness throughout. Back: No spinal tenderness. No costovertebral tenderness. Skin: Warm, dry with normal turgor. Normal color with no rashes, no lesions, and no evidence of cellulitis. MS/ Extremity: Pulses equal, no cyanosis. Neurovascular intact. Full, normal range of motion. Neuro: Awake and alert, GCS 15, oriented to person, place, time, and situation. Cranial nerves II-XII grossly intact. Motor strength 5/5 in all extremities. Sensory grossly intact. Psych: Awake, alert, with orientation to person, place and time. Positive for emotional upset. Vital Signs: 06:49 BP 180 / 119; Pulse 100; Resp 18; Temp 98.5; Pulse Ox 96% ; Pain 10/10; vc1 06:50 BP 180 / 119; Pulse 86; Resp 20 S; Pulse Ox 99% on R/A; aa10 07:35 BP 120 / 72; kc6 07:35 BP 102 / 75; kc6 08:27 BP 117 / 62; Pulse 70; Resp 16 S; Pulse Ox 100% on R/A; kc6 10:19 BP 137 / 75; Pulse 75; Resp 16 S; Pulse Ox 100% on R/A; kc6 06:49 Pain Scale: Adult vc1 MDM: 06:54 Medical Screening Exam initiated sp4 06:54 Differential diagnosis: STD, Retained POC. Data reviewed: vital signs, nurses notes, sp4 old medical records, lab test result(s), radiologic studies, ultrasound. Transition of care: After a detail discussion of the patient's case, care is transferred to Erickson Grijalva MD. 08:53 Counseling: I had a detailed discussion with the patient and/or guardian regarding the rn historical points, exam findings, and any diagnostic results supporting the discharge/admit diagnosis, lab results, radiology results, the need to transfer to another facility. ED course: Ultrasound shows thickened endometrium and heterogenous material in the uterus, concern for retained products. Spoke with Dr. Dudley at [facility] and will transfer for further evaluation and care.. 11/12 06:49 Order name: CBC with Diff; Complete Time: 07:39 sp4 11/12 06:49 Order name: CMP; Complete Time: 08:21 sp4 11/12 06:49 Order name: Urinalysis w/ reflexes; Complete Time: 07:18 sp4 11/12 06:49 Order name: Type And Screen; Complete Time: 08:41 sp4 11/12 06:49 Order name: US Pelvis Complete; Complete Time: 08:21 sp4 11/12 06:49 Order name: IV Saline Lock; Complete Time: 07:06 sp4 11/12 06:49 Order name: Labs collected and sent; Complete Time: 07:06 sp4 Administered Medications: 07:35 Drug: TORadol - Ketorolac IVP 30 mg IVP once Route: IVP; Site: right antecubital; kc6 08:28 Follow up: Response: No adverse reaction kc6 07:35 Drug: Ondansetron IVP 4 mg IVP once; over 2 minutes Route: IVP; Site: right antecubital;kc6 08:28 Follow up: Response: No adverse reaction kc6 07:35 Drug: NS 0.9% IV 1000 ml IV at 1 bolus Per protocol; to be given as a bolus over 60 kc6 minutes Route: IV; Rate: 1 bolus; Site: right antecubital; 07:35 Drug: Dicyclomine PO 20 mg PO once Route: PO; kc6 08:28 Follow up: Response: No adverse reaction kc6 Disposition Summary: 11/12/24 08:54 Transfer Ordered Notes: Transfer Location: [facility] rn Reason: Higher level of care rn Condition: Stable rn Problem: new rn Symptoms: are unchanged rn Accepting Physician: Dr. Dudley(11/12/24 10:20) kc6 Diagnosis - Abnormal uterine and vaginal bleeding, unspecified rn Forms: - Medication Reconciliation Form rn - SBAR form rn Signatures: Dispatcher [employer] EDErickson Buckley MD MD rn Calcote, Vanessa RN RN 1 Daksha Farooq RN RN kc6 Nabil Wells MD MD sp4 Julia Najera RN RN aa10 Corrections: (The following items were deleted from the chart) 06:52 06:50 Allergies: No Known Allergies; aa10 aa10 06:52 06:50 Allergies: Aspirin; aa10 aa10 06:52 06:50 Allergies: Demerol; aa10 aa10 06:52 06:50 Allergies: NKDA; aa10 aa10 10:20 08:54 Dr. Dudley rn kc6
--- NOTE | 2024-11-12 08:55 | ER ---
Nurse's Notes [facility] Name: Alla Huff Age: 39 yrs Sex: Female : 1985 Arrival Date: 11/12/2024 Time: 06:33 Bed 7 Private MD: Diagnosis: Abnormal uterine and vaginal bleeding, unspecified Presentation: 11/12 06:49 Chief complaint: Patient states: Started bleeding heavy with cramping started at 9:30 vc1 last night. I'm having large clots. Coronavirus screen: Client denies travel out of the [place] in the last 14 days. At this time, the client does not indicate any symptoms associated with coronavirus-19. Ebola Screen: Patient negative for fever greater than or equal to 101.5 degrees Fahrenheit, and additional compatible Ebola Virus Disease symptoms Patient denies exposure to infectious person. Patient denies travel to an Ebola-affected area in the 21 days before illness onset. No symptoms or risks identified at this time. Initial Sepsis Screen: Does the patient meet any 2 criteria? No. Patient's initial sepsis screen is negative. Does the patient have a suspected source of infection? No. Patient's initial sepsis screen is negative. Risk Assessment: Do you want to hurt yourself or someone else? Patient reports no desire to harm self or others. Onset of symptoms was November 11, 2024 at 21:30. 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 - Infectious Disease History:: Denies. Denies. - Family history:: not pertinent. - Social history:: Smoking status: Patient denies any tobacco usage or history of. Smoking status: unknown. Screenin:50 [facility] ED Fall Risk Assessment (Adult) History of falling in the last 3 months, aa10 including since admission No falls in past 3 months (0 pts) Confusion or Disorientation No (0 pts) Intoxicated or Sedated No (0 pts) Impaired Gait No (0 pts) Mobility Assist Device Used No (0 pt) Altered Elimination No (0 pt) Score/Fall Risk Level 0 - 2 = Low Risk Oriented to surroundings, Maintained a safe environment, Educated pt \T\ family on fall prevention, incl call for assistance when getting out of bed, Assessed \T\ reinforced patient's understanding of fall precautions, Provided non-skid footwear. 06:52 Abuse screen: Denies threats or abuse. Nutritional screening: No deficits noted. vc1 Tuberculosis screening: No symptoms or risk factors identified. Assessment: 06:48 General: Appears uncomfortable, Behavior is crying, quiet, Reports fatigue for 1-2 aa10 days. Pain: Complains of pain in abdomen Pain does not radiate. Pain currently is 9 out of 10 on a pain scale. Quality of pain is described as crampy, Pain began 1 day ago. Is continuous, Alleviated by nothing. Aggravated by increased activity. Neuro: No deficits noted. Level of Consciousness is awake, alert, obeys commands, Oriented to person, place, time, situation, Appropriate for age Speech is normal. Cardiovascular: No deficits noted. Capillary refill < 3 seconds. Respiratory: No deficits noted. Airway is patent. GI: Abdomen is non-distended, Bowel sounds present X 4 quads. Abdomen is tender to palpation in suprapubic area. 07:35 General: Appears in no apparent distress. uncomfortable, well groomed, well developed, kc6 Behavior is cooperative, crying. Neuro: Level of Consciousness is awake, alert, obeys commands, Oriented to person, place, time, situation, Appropriate for age. Cardiovascular: Capillary refill < 3 seconds. Respiratory: Airway is patent Trachea midline Respiratory effort is even, unlabored, Respiratory pattern is regular, symmetrical. GI: Abdomen is non-distended, Bowel sounds present X 4 quads. Abd is soft X 4 quads Abdomen is tender to palpation Reports lower abdominal pain, upper abdominal pain, cramping, Patient currently denies nausea, vomiting. : Reports vaginal bleeding that is bright red, moderate flow. EENT: No signs and/or symptoms were reported regarding the EENT system. Derm: No signs and/or symptoms reported regarding the dermatologic system. Skin is intact, is healthy with good turgor, Skin is pink, warm \T\ dry. Musculoskeletal: No signs and/or symptoms reported regarding the musculoskeletal system. Circulation, motion, and sensation intact. Capillary refill < 3 seconds, Range of motion: intact in all extremities. 08:27 Reassessment: Patient appears in no apparent distress at this time. No changes from kc6 previously documented assessment. Patient and/or family updated on plan of care and expected duration. Pain level reassessed. Patient is alert, oriented x 3, equal unlabored respirations, skin warm/dry/pink. 10:18 Reassessment: Patient appears in no apparent distress at this time. No changes from kc6 previously documented assessment. Patient and/or family updated on plan of care and expected duration. Pain level reassessed. Patient is alert, oriented x 3, equal unlabored respirations, skin warm/dry/pink. Vital Signs: 06:49 BP 180 / 119; Pulse 100; Resp 18; Temp 98.5; Pulse Ox 96% ; Pain 10/10; vc1 06:50 BP 180 / 119; Pulse 86; Resp 20 S; Pulse Ox 99% on R/A; aa10 07:35 BP 120 / 72; kc6 07:35 BP 102 / 75; kc6 08:27 BP 117 / 62; Pulse 70; Resp 16 S; Pulse Ox 100% on R/A; kc6 10:19 BP 137 / 75; Pulse 75; Resp 16 S; Pulse Ox 100% on R/A; kc6 06:49 Pain Scale: Adult vc1 ED Course: 06:38 Patient arrived in ED. gm2 06:46 Nabil Wells MD is Attending Physician. sp4 06:50 Patient has correct armband on for positive identification. Allergy band placed. Fall aa10 risk band placed. Bed in low position. Call light in reach. Side rails up X 1. Provided Education on: plan of care. 06:52 Triage completed. vc1 06:52 Arm band placed on right wrist. vc1 07:06 Urinalysis w/ reflexes Sent. aa10 07:06 CMP Sent. aa10 07:06 CBC with Diff Sent. aa10 07:06 Type And Screen Sent. aa10 07:06 Inserted saline lock: 20 gauge in right antecubital area, using aseptic technique. aa10 07:15 Daksha Farooq RN is Primary Nurse. kc6 07:22 Attending Physician role handed off by Nabil Wells MD rn 07:22 Erickson Grijalva MD is Attending Physician. rn 07:31 US Pelvis Complete In Process Unspecified. EDMS 08:[address] Ingris Dudley. bd 08:40 initiated transfer to [facility]. pt accepted in transfer to [facility] by dr Dudley admin approval given by Lamonte Morgan pt going to L\T\D. 10:19 No provider procedures requiring assistance completed. Patient transferred, IV remains kc6 in place. Administered Medications: 07:35 Drug: TORadol - Ketorolac IVP 30 mg IVP once Route: IVP; Site: right antecubital; kc6 08:28 Follow up: Response: No adverse reaction kc6 07:35 Drug: Ondansetron IVP 4 mg IVP once; over 2 minutes Route: IVP; Site: right antecubital;kc6 08:28 Follow up: Response: No adverse reaction kc6 07:35 Drug: NS 0.9% IV 1000 ml IV at 1 bolus Per protocol; to be given as a bolus over 60 kc6 minutes Route: IV; Rate: 1 bolus; Site: right antecubital; 07:35 Drug: Dicyclomine PO 20 mg PO once Route: PO; kc6 08:28 Follow up: Response: No adverse reaction kc6 Medication: 06:50 VIS not applicable for this client. aa10 Outcome: 08:54 ER care complete, transfer ordered by . rn 10:20 Transferred by ground EMS to [facility], Transfer form kc6 completed. 10:20 Condition: good 10:20 Instructed on the need for transfer, 10:20 Patient left the ED. kc6 Signatures: Dispatcher [employer] EDMS Beth Armas Roman, MD MD rn Calcote, Vanessa, RN RN vc1 Daksha Farooq, CHERELLE RN kc6 Nabil Wells MD MD sp4 Mitchell, Ginger 2 Julia Najera RN RN aa10 Corrections: (The following items were deleted from the chart) 06:52 06:50 Allergies: No Known Allergies; aa10 aa10 06:52 06:50 Allergies: Aspirin; aa10 aa10 :52 06:50 Allergies: Demerol; aa10 aa10 52 06:50 Allergies: NKDA; aa10 aa10 0917 08:40 initiated transfer to [facility]
[2024-11-12 10:26] VITALS: TEMP 98.5
[2024-11-12 10:31] VITALS: O2SAT 100
[2024-11-12 10:32] VITALS: BP 137/75
== END 2024-11-12 10:20 | disposition short-term general hospital (02) ==
LOC: ER 06:33
DX: O72.2 Delayed and secondary postpartum hemorrhage (principal)
CPT/HCPCS: 85025; 81001; 36415; 86900; 86850; 86901; 80053; 76856; J2405; J7030